=== PATIENT | male | born 1955 | race Two or more races ===

== ENCOUNTER 2020-07-04 22:42 | Inpatient (IN) | payer BC, OTHER ==
[~2020-07-04] VITALS: Ht 177.8 cm; Wt 70.3 kg
--- NOTE | 2020-07-04 22:42 | NUR ---
[place] [facility] [place] O2 SAT 60%, PT TO BED 8, PLACED ON MONITOR, GOWNED, PIV STARTED, BLOOD COLLECTED, RT AND MD AT BEDSIDE
--- NOTE | 2020-07-04 22:45 | NUR ---
PT DAUGHTER ANDRIA LINDSAY .
[2020-07-04] MEDS ORDERED: ACETAMINOPHEN 650 MG/20.3 ML UDC ONE (22:54)
[2020-07-04] MEDS ORDERED: IV NS 0.9% 500 ML BAG IV ONE (23:00)
[2020-07-04] MEDS ORDERED: ACETAMINOPHEN ES 500 MG TABLET GT ONE (23:00)
[2020-07-04 23:01] LABS: BASOPHILS % (AUTO) 0.3 % (0.0-2.0); EOSINOPHILS % (AUTO) 1.3 % (0.0-6.0); HEMATOCRIT 38 % (39-51); HEMOGLOBIN 12.6 g/dL (13.5-17.5); LYMPHOCYTES # (AUTO) 1.1 /CMM (0.8-4.8); LYMPHOCYTES % (AUTO) 7.5 % (20.0-44.0); MEAN CORPUSCULAR HGB CONC 33 g/dl (31.0-36.0); MEAN CORPUSCULAR VOLUME 96 fL (80-96); MONOCYTES # (AUTO) 0.5 /CMM (0.1-1.30); MONOCYTES % (AUTO) 3.6 % (2.0-12.0); NEUTROPHILS # (AUTO) 12.7 /CMM (1.8-8.9); NEUTROPHILS % (AUTO) 87.3 % (43.0-81.0); PLATELET COUNT (AUTO) 222 /CMM (150-450); RED BLOOD CELL COUNT(AUTO) 3.94 MIL/uL (4.5-6.0); WHITE BLOOD COUNT (AUTO) 14.6 K/uL (4.3-11.0)
--- NOTE | 2020-07-04 23:09 | NUR ---
COVID SWAB SENT
[2020-07-04 23:33] LABS: ALANINE AMINOTRANSFERASE 25 U/L (12-78); ALKALINE PHOSPHATASE 122 U/L (46-116); ASPARTATE AMINOTRANSFERASE 16 U/L (15-37); B-TYPE NATRIURETIC PEPTIDE 185 PG/ML (0-125); BILIRUBIN,DIRECT 0.2 mg/dL (0.0-0.2); BILIRUBIN,TOTAL 0.5 mg/dL (0.2-1.0); CALCIUM, SERUM 9.5 mg/dL (8.5-10.1); CARBON DIOXIDE 33 mmol/L (21-32); CHLORIDE 101 mmol/L (98-107); CREATININE 0.7 mg/dL (0.6-1.3); GLUCOSE 140 mg/dL (74-106); POTASSIUM 4.4 mmol/L (3.5-5.1); SODIUM SERUM 139 mmol/L (136-145); TOTAL PROTEIN, SERUM 7.3 g/dL (6.4-8.2); UREA NITROGEN, BLOOD 22 mg/dL (7-18)
[2020-07-05] VITALS (40 sets, daily range): BP systolic 75–136; BP diastolic 42–77
--- NOTE | 2020-07-05 00:19 | NUR ---
ER MD SPOKE TO DR. SOSA REGARDING PT ADMISSION.
[2020-07-05] MEDS ORDERED: VANCOMYCIN 1 GM in IV D5W 250 ML IV ONE (00:30)
[2020-07-05] MEDS ORDERED: PIPERACILLIN /TAZOBACTAM 3.375 G in IV D5W 50 ML IV ONE (00:30)
[2020-07-05] MEDS ORDERED: IV NS 0.9% 1,000 ML IV ONE (01:00)
[2020-07-05] MEDS ORDERED: METO5SOL GT (01:02)
[2020-07-05] MEDS ORDERED: IPRA4AER IH (01:02)
[2020-07-05] MEDS ORDERED: LACT-209 GT (01:02)
[2020-07-05] MEDS ORDERED: CRAN425C6 GT (01:02)
[2020-07-05] MEDS ORDERED: ASCO500C18 GT (01:02)
[2020-07-05] MEDS ORDERED: TRAZ-182 GT (01:02)
[2020-07-05] MEDS ORDERED: ATOR80TA GT (01:02)
[2020-07-05] MEDS ORDERED: PSYL1PAC8 GT (01:02)
[2020-07-05] MEDS ORDERED: ONDA4TAB5 GT (01:02)
[2020-07-05] MEDS ORDERED: GABA250S2 GT (01:02)
[2020-07-05] MEDS ORDERED: QUET25TA GT (01:02)
[2020-07-05] MEDS ORDERED: DOCU-141 GT (01:02)
[2020-07-05] MEDS ORDERED: AMIN30LI2 GT (01:02)
[2020-07-05] MEDS ORDERED: POLY17PO4 GT (01:02)
[2020-07-05] MEDS ORDERED: ASPI-1169 GT (01:02)
[2020-07-05] MEDS ORDERED: CLOP75TA15 GT (01:02)
[2020-07-05] MEDS ORDERED: SENN-261 GT (01:02)
[2020-07-05] MEDS ORDERED: FAMO40TA7 GT (01:02)
[2020-07-05] MEDS ORDERED: PIPERACILLIN /TAZOBACTAM 3.375 G VIAL IV ONE (01:13)
[2020-07-05] MEDS ORDERED: VANCOMYCIN 1 GM VIAL ONE (01:13)
--- NOTE | 2020-07-05 01:24 | NUR ---
BED ASSIGNMENT 258
[2020-07-05 01:45] LABS: ABG BASE EXCESS 6.4 mmol/L; ABG OXYGEN SATURATION 98.6 % (92.0-98.5); ABG PCO2 39.6 mmHg (35.0-45.0); ABG PH 7.498 (7.350-7.450); ABG PO2 153.7 mmHg (75.0-100.0); AaDO2 519.7 mmHg; COHb 0.3 % (0.5-1.5); MetHb 0.4 % (0.0-1.5); O2Hb 97.9 % (94.0-97.0); PEEP,BG 5 cm H2O; SITE, ABG Left Brachial; VENT MODE, BG AC 16/450/100%/+5; VT, ABG 450 mL
--- NOTE | 2020-07-05 02:12 | NUR ---
report given to june lemusinternship nurse for rachell
[2020-07-05] MEDS: IV D5/ 0.9% NACL 1,000 ML IV PRN ×2 (02:46→16:46)
--- NOTE | 2020-07-05 02:52 | NUR ---
pt transported to icu
--- NOTE | 2020-07-05 03:00 | NUR ---
MATRIX DRIER TENDER ADMISSION NOTES, RECEIVED 64 YO MALE ADMITTED FROM ER DEPARTMENT VIA STRETCHER IN COMPANY OF 1NURSES AND 2 RT, UNDER MEDICAL SERVICES OF DR SOSA, WITH DX SEPSIS, PATIENT WITH TRACH PORTEX 7 IN PLACED, ATTACHED TOO MECHANICAL VENTILATOR WITH 70% F1O2 AT THIS TIME, WITH 99% O2 SAT LEVEL, NO SOB/ACUTE DISTRESS NOTED, ATTACH ED CHIEF INTERNAL AUDITOR AND HR IN 80S AT THIS TIME, BP 86/52, GT IN PLACED, SITE INTACT, IV SITED IN RIGHT AC AND RIGHT FA 18G, BOTH PATENT AND INTACT, IV FLUIDS STARTED UPON RECEIVING PATIENT, AND INFUSING WELL, REDNESS NOTED IN SACRUM AND RIGHT HEEL, KEPT PATIENT CLEAN AND DRY, AND REPOSITIONED HIM WITH OFFLOADING HEELS, CONDOM CATH IN PLACED, NO URINE NOTED AT THIS TIME, NO BOWEL MOVEMENT, CALL LIGHT W/ REACH, S/R OF BED X2 UP, ALL NEEDS PROVIDED, WILL CONTINUE TO MONITOR CLOSELY.
[2020-07-05 04:30] LABS: BASOPHILS % (AUTO) 0.1 % (0.0-2.0); EOSINOPHILS % (AUTO) 0.1 % (0.0-6.0); HEMATOCRIT 29 % (39-51); HEMOGLOBIN 9.5 g/dL (13.5-17.5); LYMPHOCYTES # (AUTO) 0.4 /CMM (0.8-4.8); LYMPHOCYTES % (AUTO) 2.8 % (20.0-44.0); MEAN CORPUSCULAR HGB CONC 33 g/dl (31.0-36.0); MEAN CORPUSCULAR VOLUME 98 fL (80-96); MONOCYTES # (AUTO) 0.9 /CMM (0.1-1.30); MONOCYTES % (AUTO) 6.1 % (2.0-12.0); NEUTROPHILS # (AUTO) 13.8 /CMM (1.8-8.9); NEUTROPHILS % (AUTO) 90.9 % (43.0-81.0); PLATELET COUNT (AUTO) 151 /CMM (150-450); RED BLOOD CELL COUNT(AUTO) 2.94 MIL/uL (4.5-6.0); WHITE BLOOD COUNT (AUTO) 15.2 K/uL (4.3-11.0)
[2020-07-05 04:46] LABS: CALCIUM, SERUM 8.5 mg/dL (8.5-10.1); CREATININE 0.7 mg/dL (0.6-1.3)
[2020-07-05] MEDS ORDERED: MIDO2.5T GT (05:55)
[2020-07-05] MEDS ORDERED: ACET325T53 GT (05:58)
--- NOTE | 2020-07-05 06:42 | NUR ---
RN CLOSING NOTES, PATIENT REMAINED STABLE THE REST OF THE SHIFT INITIALLY SBP 80S, WITH SBP UP TO 110S AT THIS TIME, CONT ON MECHANICAL VENTILATOR WITH O2 SAT LEVEL >98%, F102 50%, CONT NSR IN TELE MONITOR WITH HR 70S AT THIS TIME, IVF INFUSING WELL AND PATIENT TOLERATED WELL, NO S/S OF INFILTRATION AT SITE, NO URINE OUTPUT IN THE LAST 3 HOURS THAT PATIENT WAS ADMITTED, CONDOM CATH IN PLACED, PATIENT DRY AND CLEAN AND WELL REPOSITIONED, BED LOCKED AND IN LOWEST POSITION, CALL LIGHT W/I REACH, BED S/R OF BED UP X2, WILL ENDORSED CONTINUITY OF CARE TO ONCOMING NURSE.
--- NOTE | 2020-07-05 07:08 | NUR ---
WOUND CARE CONSULT: REVIEWED CHART, NURSING DOCUMENTATION AND PHOTOS WHICH INDICATE SACRAL AND RT HEEL INTACT DEEP TISSUE INJURIES, PRESENT ON ADMISSION. RECOMMENDATIONS MADE FOR SKIN PROTECTION. DISCUSSED WITH NURSING STAFF. FIRST STEP LOW AIRLOSS MATTRESS IS ON ORDER. MD IN AGREEMENT WITH PLAN OF CARE.
[2020-07-05] MEDS ORDERED: Z GUARD REMEDY 2 OZ OINT TP PRN (07:30)
[2020-07-05] MEDS ORDERED: Medication Not On Formulary EA (Ipratropium/Albuterol Sulfate (Combivent Respimat 20-100 IH SCH (08:30)
[2020-07-05] MEDS ORDERED: ONDANSETRON 4 MG TAB.RAPDIS GT PRN (08:30)
[2020-07-05] MEDS: PSYLLIUM SEED 1 PKT PACKET GT SCH ×2 (08:43→20:22)
[2020-07-05] MEDS: METOCLOPRAMIDE HCL 10 MG/10 ML UDC GT SCH ×3 (08:43→17:38)
[2020-07-05] MEDS: HYDROCORTISONE SOD SUCCINATE 100 MG/2 ML VIAL IV SCH ×3 (08:43→20:22)
[2020-07-05] MEDS: FAMOTIDINE (20 MG) 20 MG TABLET GT SCH (08:44)
[2020-07-05] MEDS: VANCOMYCIN 0.75 GM in IV D5W 250 ML IV SCH ×2 (08:44→17:37)
[2020-07-05] MEDS: CLOPIDOGREL BISULFATE 75 MG TABLET GT SCH (08:44)
[2020-07-05] MEDS: QUETIAPINE FUMARATE 25 MG TABLET GT SCH ×2 (08:44→17:38)
[2020-07-05] MEDS: ASPIRIN 81 MG TAB.CHEW GT SCH (08:44)
[2020-07-05] MEDS: ASCORBIC ACID 500 MG TABLET GT SCH (08:44)
[2020-07-05] MEDS: Z GUARD REMEDY 2 OZ OINT TP SCH (08:45)
[2020-07-05 08:54] LABS: ABG BASE EXCESS 4.1 mmol/L; ABG OXYGEN SATURATION 97.1 % (92.0-98.5); ABG PCO2 49.2 mmHg (35.0-45.0); ABG PH 7.398 (7.350-7.450); ABG PO2 90.8 mmHg (75.0-100.0); AaDO2 210.4 mmHg; COHb 0.5 % (0.5-1.5); MetHb 0.3 % (0.0-1.5); O2Hb 96.3 % (94.0-97.0); PEEP,BG 5 cm H2O; SITE, ABG Left Brachial; VT, ABG 450 mL
[2020-07-05] MEDS: MIDODRINE HCL (5MG) 5 MG TABLET GT SCH ×3 (08:57→17:38)
[2020-07-05] MEDS ORDERED: ALBUTEROL FS 2.5 MG/0.5 ML VIAL.NEB NEB PRN (09:00)
[2020-07-05] MEDS ORDERED: Medication Not On Formulary EA (Cranberry Extract (Cranberry) 425 MG) GT SCH (09:00)
[2020-07-05] MEDS ORDERED: IPRATROPIUM NEB FS 0.5 MG/2.5 ML AMPUL.NEB IH PRN (09:00)
[2020-07-05] MEDS ORDERED: MIDODRINE HCL 2.5 MG TABLET GT SCH (09:00)
[2020-07-05] MEDS: PROSOURCE / PROSTAT (PYXIS) 30 ML UDC GT SCH ×2 (09:00→17:41)
[2020-07-05] MEDS ORDERED: GABAPENTIN 300 MG CAPSULE GT SCH (09:00)
--- NOTE | 2020-07-05 09:37 | NUR ---
PT ASSESSED, PT ALERT OX4, COOPERATIVE. PT ABLE TO MOUTH WORDS APPROPRIATELY. PT HAS CONDOM CATH ON WITH SMALL BAG. PT STATES HE USUALLY USES A URINAL BUT HE WOULD LIKE TO KEEP THE CONDOM CATH ON. ADD A CATH BAG ADDED TO CONDOM CATH AND SMALL BAG REMOVED. URINE SAMPLE SENT TO LAB PER MD ORDERS. PT COMPLAINS OF PAIN IN LEFT SIDE OF FACE AND LEFT EYE. PT'S LEFT EYE IS SLIGHTLY PUFFY AND PINK ON THE EYELID. PT DENIES RUBBING EYE OR SCRATCHING EYE. PT DENIES ANY OTHER PAIN AT THIS TIME. PT'S CURRENT TEMP IS 98.6 ORALLY. PT ABLE TO REPOSITION SELF IN BED WITHOUT DIFFICULTY OBSERVED BY RN. WILL CONTINUE TO MONITOR.
[2020-07-05] MEDS: PIPERACILLIN /TAZOBACTAM 3.375 G in IV D5W 100 ML IV SCH ×2 (09:48→18:49)
--- NOTE | 2020-07-05 10:04 | NUR ---
RN SPOKE TO PT'S DAUGHTER ANDRIA. ACCORDING TO ANDRIA PT RECEIVED BOTH DOSES OF THE COVID 19 VACCINE AT [facility].
[2020-07-05 10:11] LABS: BILIRUBIN,URINE NEGATIVE (NEGATIVE); COLOR,URINE DARK YELLOW (YELLOW); LEUKOCYTE ESTERASE ,URINE NEGATIVE (NEGATIVE); NITRITE, URINE NEGATIVE (NEGATIVE); PH,URINE 5.5 (5.0-8.0); PROTEIN,URINE NEGATIVE (NEGATIVE); UGLUCOSE NEGATIVE (NEGATIVE); UROBILINOGEN,URINE 0.2 EU/dL (0.2)
[2020-07-05] MEDS: GABAPENTIN 300 MG CAPSULE GT SCH (10:38)
[2020-07-05] MEDS: ACETAMINOPHEN 650 MG/20.3 ML UDC GT PRN (10:38)
--- NOTE | 2020-07-05 11:08 | NUR ---
[facility]ACCINE ON 06/08/20, NURSE STATES SHE WILL FAX OVER PROOF OF VACCINE TO US.
[2020-07-05] MEDS: JEVITY 1.2 CAL 1,000 ML BOTTLE GT SCH (12:19)
[2020-07-05 12:21] LABS: MAGNESIUM 1.9 mg/dL (1.8-2.4)
[2020-07-05 12:23] LABS: RBC,URINE NONE SEEN /HPF (0-2)
[2020-07-05 12:24] LABS: BACTERIA,URINE None seen /HPF (None Seen); SQUAMOUS EPITHELIAL CELL,UR Few /HPF (None Seen)
[2020-07-05 13:02] LABS: THYROID STIMULATING HORMONE 0.903 uIU/mL (0.358-3.74)
[2020-07-05] MEDS ORDERED: NEUTRA PHOS 1 POWD.PACKET GT ONE (14:00)
--- NOTE | 2020-07-05 18:52 | NUR ---
END OF SHIFT NOTE: PT ALERT OX4. CONDOM CATHETER CAME OFF, PT IS ABLE TO USE URINAL. 1ST STEP OVERLAY MATTRESS PUT ON BED PER MD ORDERS. TUBE FEEDING STARTED PER MD ORDERS. PT CHECKED ON HOURLY AND PRN BY NURSING STAFF.
--- NOTE | 2020-07-05 19:15 | NUR ---
RECEIVED PT ON BED AWAKE PT ALERT OX4, COOPERATIVE. PT ABLE TO MOUTH WORDS APPROPRIATELY. TELE MONITOR READS SINUS RHYTHM 80'S HAVE GTUBE ON PLACE PATENT, PLACEMENT WAS CHECKED AND VERIFIED RESIDUAL 5ML WITH ONGOING JEVITY @ 75ML/HR TOLERATING WELL HAVE RAC #18 AND RHAND #20 IV CLEAN DRY AND INTACT FLUSHED WELL WITH ONGOING NS @ 100ML/HR INFUSING WELL, BED ON LWOEST POSITION AND LCOKED SIDE RAILS UP X 2 CALL LIGHT WITHIN REACH WILL CONTINUE TO MONITOR.
[2020-07-05] MEDS: ENOXAPARIN SODIUM 40 MG/0.4 ML DISP.SYRIN SQ SCH (20:25)
[2020-07-05] MEDS: POLYETHYLENE GLYCOL 3350 17 GM POWD.PACK GT SCH (21:13)
[2020-07-05] MEDS: DOCUSATE SODIUM LIQ 100 MG/10 ML UDC GT SCH (21:13)
[2020-07-05] MEDS: SENNOSIDES 8.6 MG TABLET GT SCH (21:13)
[2020-07-05] MEDS: ATORVASTATIN 40 MG TABLET GT SCH (21:13)
[2020-07-05] MEDS: TRAZODONE 50 MG TABLET GT SCH (21:13)
[2020-07-06] VITALS (29 sets, daily range): BP systolic 93–144; BP diastolic 52–81
[2020-07-06] MEDS: VANCOMYCIN 0.75 GM in IV D5W 250 ML IV SCH ×3 (00:10→16:52)
[2020-07-06] MEDS: ACETAMINOPHEN 650 MG/20.3 ML UDC GT PRN ×2 (00:15→08:42)
[2020-07-06] MEDS: PIPERACILLIN /TAZOBACTAM 3.375 G in IV D5W 100 ML IV SCH ×3 (01:08→17:59)
[2020-07-06] MEDS: IV D5/ 0.9% NACL 1,000 ML IV PRN ×2 (02:56→14:18)
[2020-07-06 04:53] LABS: BASOPHILS % (AUTO) 0.1 % (0.0-2.0); HEMATOCRIT 28 % (39-51); HEMOGLOBIN 9.2 g/dL (13.5-17.5); LYMPHOCYTES # (AUTO) 0.7 /CMM (0.8-4.8); LYMPHOCYTES % (AUTO) 6.7 % (20.0-44.0); MEAN CORPUSCULAR HGB CONC 33 g/dl (31.0-36.0); MEAN CORPUSCULAR VOLUME 96 fL (80-96); MONOCYTES # (AUTO) 0.3 /CMM (0.1-1.30); MONOCYTES % (AUTO) 3.2 % (2.0-12.0); PLATELET COUNT (AUTO) 149 /CMM (150-450); RED BLOOD CELL COUNT(AUTO) 2.88 MIL/uL (4.5-6.0)
[2020-07-06] MEDS: HYDROCORTISONE SOD SUCCINATE 100 MG/2 ML VIAL IV SCH (05:02)
[2020-07-06 05:20] LABS: ALANINE AMINOTRANSFERASE 22 U/L (12-78); ALBUMIN 2.2 g/dL (3.4-5.0); ALKALINE PHOSPHATASE 95 U/L (46-116); ASPARTATE AMINOTRANSFERASE 14 U/L (15-37); BILIRUBIN,TOTAL 0.3 mg/dL (0.2-1.0); CALCIUM, SERUM 8.6 mg/dL (8.5-10.1); CARBON DIOXIDE 31 mmol/L (21-32); CHLORIDE 104 mmol/L (98-107); CREATININE 0.5 mg/dL (0.6-1.3); GLUCOSE 163 mg/dL (74-106); MAGNESIUM 2.1 mg/dL (1.8-2.4); PHOSPHORUS 1.9 mg/dL (2.5-4.9); POTASSIUM 3.9 mmol/L (3.5-5.1); SODIUM SERUM 139 mmol/L (136-145); TOTAL PROTEIN, SERUM 5.7 g/dL (6.4-8.2); UREA NITROGEN, BLOOD 16 mg/dL (7-18)
--- NOTE | 2020-07-06 06:46 | NUR ---
PT ON BED AWAKE A/O X3 CAN MOUTH NEEDS STILL ON TRACH/VENT SETTING PER MD FIO2 50% SPO2 93% NO SIGN AND SYMPTOMS OF RESPIRATORY DISTRESS NO PAIN COMPLAINT, BEDSIDE MONITOR READS SINUS RHYTHM 80S NO SIGNIFICANT CHANGES ON CONDITION NOTED ALL NEEDS ATTENDED BED ON LOWEST POSITION AND LOCKED SIDE RAILS UP X2 CALL LIGHT WITHIN REACH WILL ENDORSED TO AM SHIFT NURSE,
--- NOTE | 2020-07-06 07:49 | NUR ---
PATIENT RECEIVED IN BED AWAKE AND ALERT ORIENTED X 3. ABLE TO MOUTH WORDS AND NOD HEAD. PATIENT ON PRESCRIBED VENT TRACH PORTEX 7, AC 16, FIO2 50%, TV 480, PEEP 5. PATIENT ON MONITOR SHOWING SR 70-80s. PATIENT HAS PEG TUBE IN PLACE. FEEDING PAUSED FOR 0800, WILL INITIATE AT 1200 ORDERED. PATIENT HAS RAC 18 AND RFA 18 INTACT, NO SIGNS OF INFECTION OR INFILTRATION. . ALL SAFETY MEASURES IN PLACE. WILL CONTINUE TO MONITOR
[2020-07-06] MEDS: ASCORBIC ACID 500 MG TABLET GT SCH (08:23)
[2020-07-06] MEDS: QUETIAPINE FUMARATE 25 MG TABLET GT SCH ×2 (08:23→16:50)
[2020-07-06] MEDS: CLOPIDOGREL BISULFATE 75 MG TABLET GT SCH (08:23)
[2020-07-06] MEDS: GABAPENTIN 300 MG CAPSULE GT SCH (08:23)
[2020-07-06] MEDS: ASPIRIN 81 MG TAB.CHEW GT SCH (08:23)
[2020-07-06] MEDS: PROSOURCE / PROSTAT (PYXIS) 30 ML UDC GT SCH ×2 (08:24→16:51)
[2020-07-06] MEDS: MIDODRINE HCL (5MG) 5 MG TABLET GT SCH ×3 (08:24→16:51)
[2020-07-06] MEDS: FAMOTIDINE (20 MG) 20 MG TABLET GT SCH (08:24)
[2020-07-06] MEDS: METOCLOPRAMIDE HCL 10 MG/10 ML UDC GT SCH ×3 (08:25→16:51)
[2020-07-06] MEDS: PSYLLIUM SEED 1 PKT PACKET GT SCH ×2 (08:25→21:08)
[2020-07-06] MEDS: Z GUARD REMEDY 2 OZ OINT TP SCH (08:39)
[2020-07-06] MEDS: NEUTRA PHOS 1 POWD.PACKET PO SCH ×2 (09:17→16:50)
--- NOTE | 2020-07-06 11:17 | NUR ---
PCR NEGATIVE TEST RESULT RELAYED TO MD SOSA, PENDING BED PLACEMENT FOR TRANSFER TO [facility]
[2020-07-06] MEDS: JEVITY 1.2 CAL 1,000 ML BOTTLE GT SCH (12:00)
[2020-07-06] MEDS: SOD FERRIC GLUC 125 MG in IV NS 0.9% 100 ML IV SCH (14:18)
--- NOTE | 2020-07-06 16:00 | NUR ---
PATIENT TRANSPORTED WITH RT TO [facility] ROOM 109
--- NOTE | 2020-07-06 19:30 | NUR ---
RN OPENING NOTES: RECEIVED PT A/OX4 IN BED RESTING COMFORTABLY. PATIENT IN NO S/SX OF ACUTE DISTRESS AT THIS TIME. NO SOB NOTED. PATIENT'S BREATHING IS EVEN AND UNLABORED. PATIENT ON MECHANICAL VENT; SETTINGS PRESCRIBED; PT TOLERATED WELL. AMBU BAG AT BED SIDE ALARMS SET PER PROTOCOL AND AUDIBLE. VENT PLUGGED IN TO RED OUTLET. NO DISTRESS NOTED. PATIENT ON TELE MONITORING READING SINUS RHYTHM HR IS @70s AT THE TIME OF RECEIVED. G TUBE FLUSHING AND PATENT; SITE CLEAN DRY AND INTACT; NO RESIDUAL NOTED; CONNECTED TO TUBE FEEDING OF JEVITY 1.2 @75ML/HR; PT TOLERATES WELL. NOTED IV SITE ON R FA #18;PATENT, INTACT AND FLUSHING WELL; NO S/S OF INFECTION OR INFILTRATION. WITH IV FLUID RUNNING ORDERED. WITH URINAL @ BEDSIDE. PATIENT WITH VT PUMP ON. SAFETY MEASURES HAVE BEEN PROVIDED AND IMPLEMENTED. PATIENT BED ALARM IS ON. HEAD OF BED ELEVATED. BED IS LOCKED, IN LOWEST POSITION AND SIDE RAILS UP. CALL LIGHT WITHIN REACH OF THE PATIENT. APPLICABLE ISOLATION PRECAUTIONS IN PLACE. WILL CONTINUE TO MONITOR AND REASSESS FOR ANY CHANGES AND WILL CARRY OUT ANY ONGOING AND ACTIVE MD ORDER.
--- NOTE | 2020-07-06 20:03 | NUR ---
PATIENT REMAINS IN BED NO ACUTE CHANGE OF CONDITION, PATIENT TO BE ON SIMV TRIAL TOMORROW. WOUND TX COMPLETED THIS SHIFT DIRECTED. ALL SAFETY MEASURES IN PLACE. REPORT GIVEN TO ONCOMING RN FOR ARACELI
[2020-07-06] MEDS: POLYETHYLENE GLYCOL 3350 17 GM POWD.PACK GT SCH (21:09)
[2020-07-06] MEDS: ATORVASTATIN 40 MG TABLET GT SCH (21:09)
[2020-07-06] MEDS: TRAZODONE 50 MG TABLET GT SCH (21:09)
[2020-07-06] MEDS: SENNOSIDES 8.6 MG TABLET GT SCH (21:09)
[2020-07-06] MEDS: ENOXAPARIN SODIUM 40 MG/0.4 ML DISP.SYRIN SQ SCH (21:10)
[2020-07-06] MEDS: DOCUSATE SODIUM LIQ 100 MG/10 ML UDC GT SCH (21:10)
--- NOTE | 2020-07-06 23:00 | NUR ---
RN NOTES NO CHANGE IN PATIENT CONDITION AT THIS TIME PATIENT VITALS STABLE, NO SIGNS OF ACUTE RESPIRATORY DISTRESS. SEAFOOD AND SERVICE MEAT MANAGER MADE AWARE. WILL CONTINUE TO MONITOR AND REASSESS FOR ANY CHANGES THROUGHOUT THE SHIFT.
[2020-07-07] VITALS: BP 95/57
[2020-07-07] MEDS: IV D5/ 0.9% NACL 1,000 ML IV PRN
[2020-07-07] MEDS: VANCOMYCIN 0.75 GM in IV D5W 250 ML IV SCH ×3 (00:08→17:22)
[2020-07-07] MEDS: PIPERACILLIN /TAZOBACTAM 3.375 G in IV D5W 100 ML IV SCH ×3 (00:08→17:21)
--- NOTE | 2020-07-07 03:00 | NUR ---
RN NOTES PATIENT REMAINS IN NO ACUTE RESPIRATORY DISTRESS AT THIS TIME, NO CHANGES TO CONDITION/STATUS. SHAPE BRICK MOLDER WELL AWARE. WILL CONTINUE TO MONITOR AND REASSESS FOR ANY CHANGES THROUGHOUT THE SHIFT
[2020-07-07 04:00] VITALS: BP 98/54
[2020-07-07 06:57] LABS: BASOPHILS % (AUTO) 0.3 % (0.0-2.0); EOSINOPHILS % (AUTO) 0.4 % (0.0-6.0); HEMATOCRIT 26 % (39-51); HEMOGLOBIN 8.9 g/dL (13.5-17.5); LYMPHOCYTES # (AUTO) 1.4 /CMM (0.8-4.8); LYMPHOCYTES % (AUTO) 19.4 % (20.0-44.0); MEAN CORPUSCULAR HGB CONC 34 g/dl (31.0-36.0); MEAN CORPUSCULAR VOLUME 97 fL (80-96); MONOCYTES # (AUTO) 0.4 /CMM (0.1-1.30); MONOCYTES % (AUTO) 6.3 % (2.0-12.0); NEUTROPHILS # (AUTO) 5.2 /CMM (1.8-8.9); NEUTROPHILS % (AUTO) 73.6 % (43.0-81.0); PLATELET COUNT (AUTO) 148 /CMM (150-450); RED BLOOD CELL COUNT(AUTO) 2.72 MIL/uL (4.5-6.0); WHITE BLOOD COUNT (AUTO) 7.1 K/uL (4.3-11.0)
[2020-07-07 07:15] LABS: CALCIUM, SERUM 8.2 mg/dL (8.5-10.1); CREATININE 0.5 mg/dL (0.6-1.3); MAGNESIUM 1.8 mg/dL (1.8-2.4); PHOSPHORUS 2.4 mg/dL (2.5-4.9)
--- NOTE | 2020-07-07 07:30 | NUR ---
[facility] RN AM NOTES: RECEIVED PT A/OX4 IN BED RESTING COMFORTABLY. WITH PORTEX 7 TO MECHANICAL VENT, SETTING ORDERED, WELL TOLERATED O2 SAT AT 98%. BREATHING EVEN AND UNLABORED. NO SOB NOTED. AMBU BAG AT BED SIDE ALARMS SET PER PROTOCOL AND AUDIBLE. VENT PLUGGED IN TO RED OUTLET. SINUS RHYTHM ON MONITOR HR 6, DENIES PAIN OR ANY DISCOMFORT. IVF D5NS AT 100 ML/HR INFUSING WELL TO RFA G 18, SITE CLEAR. GT CHECKED FOR PLACEMENT, 0 RESIDUAL, FLUSHED THEN CONNECTED TO TUBE FEEDING OF JEVITY 1.2 @75ML/HR; ON AT 1200 OFF AT 0800. PT TOLERATES WELL. WITH URINAL @ BEDSIDE. PATIENT WITH DVT PUMP ON. SEE NURSING ASSESSMENT FOR SKIN ISSUES. SAFETY MEASURES IN PLACE. INDEPENDENT OF BED MOBILITY. PATIENT BED ALARM IS ON. HEAD OF BED ELEVATED. BED IS LOCKED, IN LOWEST POSITION AND SIDE RAILS UP. CALL LIGHT WITHIN REACH OF THE PATIENT. APPLICABLE ISOLATION PRECAUTIONS IN PLACE. WILL CONTINUE TO MONITOR AND REASSESS FOR ANY CHANGES AND WILL CARRY OUT ANY ONGOING AND ACTIVE MD ORDER.
[2020-07-07 08:00] VITALS: BP 100/65
[2020-07-07] MEDS: METOCLOPRAMIDE HCL 10 MG/10 ML UDC GT SCH ×3 (08:19→17:21)
[2020-07-07] MEDS: PSYLLIUM SEED 1 PKT PACKET GT SCH ×2 (08:20→20:58)
[2020-07-07] MEDS: ASCORBIC ACID 500 MG TABLET GT SCH (08:20)
[2020-07-07] MEDS: CLOPIDOGREL BISULFATE 75 MG TABLET GT SCH (08:20)
[2020-07-07] MEDS: QUETIAPINE FUMARATE 25 MG TABLET GT SCH ×2 (08:21→17:20)
[2020-07-07] MEDS: MIDODRINE HCL (5MG) 5 MG TABLET GT SCH ×3 (08:21→17:20)
[2020-07-07] MEDS: GABAPENTIN 300 MG CAPSULE GT SCH (08:21)
[2020-07-07] MEDS: ASPIRIN 81 MG TAB.CHEW GT SCH (08:21)
[2020-07-07] MEDS: FAMOTIDINE (20 MG) 20 MG TABLET GT SCH (08:22)
[2020-07-07] MEDS: PROSOURCE / PROSTAT (PYXIS) 30 ML UDC GT SCH ×2 (08:27→17:21)
[2020-07-07] MEDS: Z GUARD REMEDY 2 OZ OINT TP SCH (08:28)
[2020-07-07] MEDS ORDERED: POTASSIUM PHOSPHATE MM 15 MMOL in IV NS 0.9% 250 ML IV SCH (09:30)
--- NOTE | 2020-07-07 09:30 | NUR ---
RN NOTES DUE MEDS GIVEN
--- NOTE | 2020-07-07 09:53 | NUR ---
WEB MARKETING INTERN NOTES TRANSFER TO TELEMETRY STATUS
[2020-07-07 10:12] LABS: ABG BASE EXCESS 3.6 mmol/L; ABG PCO2 43.4 mmHg (35.0-45.0); ABG PH 7.432 (7.350-7.450); ABG PO2 117.3 mmHg (75.0-100.0); AaDO2 190.4 mmHg; COHb 0.3 % (0.5-1.5); MetHb 0.4 % (0.0-1.5); O2Hb 97.3 % (94.0-97.0); SITE, ABG Right Radial; VENT MODE, BG SIMV 4 PS 15 50% +5
[2020-07-07] MEDS: POTASSIUM PHOSPHATE MM 7.5 MMOL in IV NS 0.9% 100 ML IV SCH ×2 (10:46→12:44)
[2020-07-07] MEDS: POTASSIUM CHLORIDE 20 MEQ POWDER PACKET GT SCH ×2 (11:36→12:26)
[2020-07-07 12:00] VITALS: BP 112/71
[2020-07-07] MEDS: JEVITY 1.2 CAL 1,000 ML BOTTLE GT SCH (12:48)
[2020-07-07] MEDS: SOD FERRIC GLUC 125 MG in IV NS 0.9% 100 ML IV SCH (15:51)
[2020-07-07 16:00] VITALS: BP 100/70
[2020-07-07] MEDS: Potassium Chloride 40 MEQ in IV D5/ 0.9% NACL 1,000 ML IV PRN (17:21)
--- NOTE | 2020-07-07 18:56 | NUR ---
DUMPER BAILER OPERATOR CLOSING NOTES: PT IN BED, RESTING, A/OX4, WITH PORTEX 7 TO MECHANICAL VENT, SETTING ORDERED, WELL TOLERATED O2 SAT AT 98%. BREATHING EVEN AND UNLABORED. NO SOB NOTED. AMBU BAG AT BED SIDE ALARMS SET PER PROTOCOL AND AUDIBLE. VENT PLUGGED IN TO RED OUTLET. SINUS RHYTHM ON MONITOR HR 86, DENIES PAIN OR ANY DISCOMFORT. IVF D5NS AT 100 ML/HR INFUSING WELL TO RFA G 18, SITE CLEAR. WITH [place]D MIDLINE G 18, FLUSHES WELL SITE CLEAR.GT CHECKED FOR PLACEMENT, 0 RESIDUAL, FLUSHED THEN CONNECTED TO TUBE FEEDING OF JEVITY 1.2 @75ML/HR; ON AT 1200 OFF AT 0800. PT TOLERATES WELL. WITH URINAL @ BEDSIDE. PATIENT WITH DVT PUMP ON. SAFETY MEASURES IN PLACE. INDEPENDENT OF BED MOBILITY. PATIENT BED ALARM IS ON. HEAD OF BED ELEVATED. BED IS LOCKED, IN LOWEST POSITION AND SIDE RAILS UP. CALL LIGHT WITHIN REACH OF THE PATIENT. APPLICABLE ISOLATION PRECAUTIONS IN PLACE. ALL NEEDS MET, PERFORMED PRESCRIBED WOUND TREATMENT WITH PM CARE. S/P RT BUTTOCK WOUND DEBRIDEMENT BY YI ENRIQUEZ. WILL ENDORSE TO NEXT SHIFT FOR ARACELI. Addendum: 07/07/20 at 1905 by GLENNY DAVILA RN CORRECTION: DISREGARD DOCUMENTED S/P RT BUTTOCK WOUND DEBRIDEMENT, INTENDED FOR ANOTHER PATIENT Addendum: 07/07/20 at 1909 by GLENNY DAVILA RN CORRECTION: IVF D5NS + 40 MEQ KCL INFUSING AT 70 ML/HR Addendum: 07/07/20 at 192 by GLENNY DAVILA RN CORRECTION: PATIENT WITH RFA G 18 ONLY. DISREGARD EDMOND MIDLINE DOCUMENTATION INTENDED FOR ANOTHER PATIENT.
--- NOTE | 2020-07-07 19:30 | NUR ---
RN OPENING NOTES: RECEIVED TRACH PT A/OX4 IN BED RESTING COMFORTABLY. PATIENT IN NO S/SX OF ACUTE DISTRESS AT THIS TIME. NO SOB NOTED. PATIENT'S BREATHING IS EVEN AND UNLABORED. PATIENT ON MECHANICAL VENT; SETTINGS PRESCRIBED; PT TOLERATED WELL. AMBU BAG AT BED SIDE ALARMS SET PER PROTOCOL AND AUDIBLE. VENT PLUGGED IN TO RED OUTLET. NO DISTRESS NOTED. PATIENT ON TELE MONITORING READING SINUS RHYTHM HR IS @76 AT THE TIME OF RECEIVED. G TUBE FLUSHING AND PATENT; SITE CLEAN DRY AND INTACT; 20CC OF RESIDUAL TAKEN; CONNECTED TO TUBE FEEDING OF JEVITY 1.2 @75ML/HR; PT TOLERATES WELL. NOTED IV SITE ON R FA #18 AND R UA MIDLINE # 18;BOTH PATENT, INTACT AND FLUSHING WELL; NO S/S OF INFECTION OR INFILTRATION. WITH IV FLUID RUNNING ORDERED. WITH URINAL @ BEDSIDE. PATIENT WITH VT PUMP ON. SAFETY MEASURES HAVE BEEN PROVIDED AND IMPLEMENTED. PATIENT BED ALARM IS ON. HEAD OF BED ELEVATED. BED IS LOCKED, IN LOWEST POSITION AND SIDE RAILS UP. CALL LIGHT WITHIN REACH OF THE PATIENT. APPLICABLE ISOLATION PRECAUTIONS IN PLACE. WILL CONTINUE TO MONITOR AND REASSESS FOR ANY CHANGES AND WILL CARRY OUT ANY ONGOING AND ACTIVE MD ORDER. Addendum: 07/08/20 at 0657 by LO LEE RN CORRECTION: PT HAS NO R UA MIDLINE; ONLY R FA.
[2020-07-07 20:00] VITALS: BP 126/74
--- NOTE | 2020-07-07 20:00 | NUR ---
RN NOTES REGULAR SUCTIONING MEASURES PROVIDED, WILL BE DONE Q2H AND NEEDED TO FACILITATE SECRETION REMOVAL AND TO FACILITATE GOOD AIRWAY CLEARANCE AND VENTILATION. SAWMILL PRODUCTION WORKER MADE AWARE. WILL CONTINUE TO MONITOR AND ASSESS THROUGHOUT THE SHIFT.
[2020-07-07] MEDS: ENOXAPARIN SODIUM 40 MG/0.4 ML DISP.SYRIN SQ SCH (20:59)
[2020-07-07] MEDS: ATORVASTATIN 40 MG TABLET GT SCH (21:00)
[2020-07-07] MEDS: POLYETHYLENE GLYCOL 3350 17 GM POWD.PACK GT SCH (21:00)
[2020-07-07] MEDS: SENNOSIDES 8.6 MG TABLET GT SCH (21:00)
[2020-07-07] MEDS: DOCUSATE SODIUM LIQ 100 MG/10 ML UDC GT SCH (21:00)
[2020-07-07] MEDS: TRAZODONE 50 MG TABLET GT SCH (21:00)
--- NOTE | 2020-07-07 23:00 | NUR ---
RN NOTES PATIENT REMAINS IN NO ACUTE RESPIRATORY DISTRESS AT THIS TIME, NO CHANGES TO CONDITION/STATUS. CIRCLE BEVELER WELL AWARE. WILL CONTINUE TO MONITOR AND REASSESS FOR ANY CHANGES THROUGHOUT THE SHIFT
[2020-07-08] VITALS: BP 107/64
--- NOTE | 2020-07-08 | NUR ---
RN NOTES REGULAR SUCTIONING MEASURES PROVIDED, WILL BE DONE Q2H AND NEEDED TO FACILITATE SECRETION REMOVAL AND TO FACILITATE GOOD AIRWAY CLEARANCE AND VENTILATION. SUPERIOR COURT CLERK MADE AWARE. WILL CONTINUE TO MONITOR AND ASSESS THROUGHOUT THE SHIFT.
[2020-07-08] MEDS: PIPERACILLIN /TAZOBACTAM 3.375 G in IV D5W 100 ML IV SCH ×2 (00:01→10:59)
[2020-07-08] MEDS: VANCOMYCIN 0.75 GM in IV D5W 250 ML IV SCH ×3 (00:02→17:42)
--- NOTE | 2020-07-08 03:00 | NUR ---
RN NOTES NO CHANGE IN PATIENT CONDITION AT THIS TIME PATIENT VITALS STABLE, NO SIGNS OF ACUTE RESPIRATORY DISTRESS. MANAGER COMPANY MADE AWARE. WILL CONTINUE TO MONITOR AND REASSESS FOR ANY CHANGES THROUGHOUT THE SHIFT.
[2020-07-08 04:00] VITALS: BP 100/66
--- NOTE | 2020-07-08 04:00 | NUR ---
RN NOTES REGULAR SUCTIONING MEASURES PROVIDED, WILL BE DONE Q2H AND NEEDED TO FACILITATE SECRETION REMOVAL AND TO FACILITATE GOOD AIRWAY CLEARANCE AND VENTILATION. TARE MAN MADE AWARE. WILL CONTINUE TO MONITOR AND ASSESS THROUGHOUT THE SHIFT.
[2020-07-08] MEDS: JEVITY 1.2 CAL 1,000 ML BOTTLE GT SCH (04:43)
--- NOTE | 2020-07-08 06:00 | NUR ---
RN NOTES REGULAR SUCTIONING MEASURES PROVIDED, WILL BE DONE Q2H AND NEEDED TO FACILITATE SECRETION REMOVAL AND TO FACILITATE GOOD AIRWAY CLEARANCE AND VENTILATION. DISTRICT SALES COORDINATOR MADE AWARE. WILL CONTINUE TO MONITOR AND ASSESS THROUGHOUT THE SHIFT.
[2020-07-08 06:21] LABS: BASOPHILS % (AUTO) 0.6 % (0.0-2.0); EOSINOPHILS % (AUTO) 2.7 % (0.0-6.0); HEMATOCRIT 28 % (39-51); HEMOGLOBIN 9.5 g/dL (13.5-17.5); LYMPHOCYTES # (AUTO) 1.3 /CMM (0.8-4.8); LYMPHOCYTES % (AUTO) 21.9 % (20.0-44.0); MEAN CORPUSCULAR HGB CONC 34 g/dl (31.0-36.0); MEAN CORPUSCULAR VOLUME 96 fL (80-96); MONOCYTES # (AUTO) 0.5 /CMM (0.1-1.30); MONOCYTES % (AUTO) 7.9 % (2.0-12.0); NEUTROPHILS # (AUTO) 4.1 /CMM (1.8-8.9); NEUTROPHILS % (AUTO) 66.9 % (43.0-81.0); PLATELET COUNT (AUTO) 157 /CMM (150-450); WHITE BLOOD COUNT (AUTO) 6.1 K/uL (4.3-11.0)
--- NOTE | 2020-07-08 07:00 | NUR ---
RN CLOSING NOTE: PATIENT REMAINS IN ROOM IN NO SIGNS OF RESPIRATORY DISTRESS; STILL ON VENT SETTING PER ORDERED. SAFETY MEASURES IMPLEMENTED, BED IN LOWEST POSITION, LOCKED, SIDE RAILS UP, CALL LIGHT WITHIN REACH. ALL NEEDS AND ORDERS ADDRESSED DURING THE SHIFT. IV ACCESS MAINTAINED INTACT, SECURED AND FLUSHING WELL. ALL DUE MEDS GIVEN ORDERED & SCHEDULED ; PATIENT TOLERATED WELL. PATIENT KEPT CLEAN AND COMFORTABLE WITHIN THE SHIFT. PATIENT ENDORSED TO INCOMING SHIFT RN WITH STABLE VITAL SIGN AND FOR CONTINUITY OF CARE.
[2020-07-08 07:12] LABS: CREATININE 0.5 mg/dL (0.6-1.3); POTASSIUM 3.6 mmol/L (3.5-5.1)
[2020-07-08 07:19] LABS: MAGNESIUM 1.8 mg/dL (1.8-2.4); PHOSPHORUS 3.2 mg/dL (2.5-4.9)
--- NOTE | 2020-07-08 07:20 | NUR ---
RN NOTE RFA #18 IS NO LONGER INTACT. LAC #20 HAS BEEN INSERTED FOR FURTHER USE.
--- NOTE | 2020-07-08 07:30 | NUR ---
RN OPENING NOTE PATIENT IS CURRENTLY IN BED WITH HOB AT SEMI FOWLERS POSITION. PATIENT'S TRACH/VENT ARE IN PLACE WITH NO SIGNS OF LABORED BREATHING. PATIENT IS AOX4. SACRAL STAGE 4 AND BILATERAL FEET WOUNDS ARE NOTED. GTUBE IS IN PLACE WITH APPROPRIATE FEEDING. LAC #[address], PATENT, AND HAS NO SIGNS OF INFILTRATION. BED IS LOCKED IN THE LOWEST POSITION, 3 GUARD RAILS RAISED, AND ALL HOSPITAL SAFETY PRECAUTIONS ARE BEING FOLLOWED. WILL CONTINUE TO MONITOR THROUGHOUT SHIFT.
[2020-07-08 08:00] VITALS: BP 140/66
[2020-07-08] MEDS: MIDODRINE HCL (5MG) 5 MG TABLET GT SCH ×3 (09:00→17:42)
--- NOTE | 2020-07-08 09:30 | NUR ---
RN NOTE NOTIFIED PHARMACY OF IV COMPATIBILITY CONFLICT BETWEEN VANCOMYCIN AND ZOSYN. ADVISED TO ADMINISTER VANCO FIRST FOLLOWED BY ZOSYN. WILL CARRY ON.
[2020-07-08] MEDS: ASPIRIN 81 MG TAB.CHEW GT SCH (09:33)
[2020-07-08] MEDS: CLOPIDOGREL BISULFATE 75 MG TABLET GT SCH (09:34)
[2020-07-08] MEDS: GABAPENTIN 300 MG CAPSULE GT SCH (09:34)
[2020-07-08] MEDS: METOCLOPRAMIDE HCL 10 MG/10 ML UDC GT SCH ×3 (09:35→17:39)
[2020-07-08] MEDS: QUETIAPINE FUMARATE 25 MG TABLET GT SCH ×2 (09:35→17:39)
[2020-07-08] MEDS: ASCORBIC ACID 500 MG TABLET GT SCH (09:35)
[2020-07-08] MEDS: PSYLLIUM SEED 1 PKT PACKET GT SCH (09:36)
[2020-07-08] MEDS: FAMOTIDINE (20 MG) 20 MG TABLET GT SCH (09:44)
[2020-07-08] MEDS: PROSOURCE / PROSTAT (PYXIS) 30 ML UDC GT SCH ×2 (09:50→17:41)
[2020-07-08] MEDS: Z GUARD REMEDY 2 OZ OINT TP SCH (09:50)
[2020-07-08 10:04] LABS: ABG BASE EXCESS 4.7 mmol/L; ABG OXYGEN SATURATION 94.9 % (92.0-98.5); ABG PCO2 38.1 mmHg (35.0-45.0); ABG PH 7.489 (7.350-7.450); ABG PO2 73.3 mmHg (75.0-100.0); AaDO2 168.1 mmHg; COHb 0.3 % (0.5-1.5); MetHb 0.2 % (0.0-1.5); O2Hb 94.4 % (94.0-97.0); SITE, ABG Right Radial; VENT MODE, BG C/A 40%
[2020-07-08 12:00] VITALS: BP 116/63
[2020-07-08] MEDS: Potassium Chloride 40 MEQ in IV D5/ 0.9% NACL 1,000 ML IV PRN (13:26)
[2020-07-08] MEDS: SOD FERRIC GLUC 125 MG in IV NS 0.9% 100 ML IV SCH (14:24)
[2020-07-08 16:00] VITALS: BP 113/64
--- NOTE | 2020-07-08 16:45 | NUR ---
RN NOTE REPORT GIVEN TO RONALD POSADA AT [facility] FOR ARACELI POST DISCHARGE.
[2020-07-08 17:42] VITALS: BP 116/63
--- NOTE | 2020-07-08 19:32 | NUR ---
LEAD INSTRUCTOR/FLIGHT ATTENDANT NOTE PATIENT DISCHARGED TO [facility]. PATIENT IS STABLE AT TIME OF EMT TRANSFER. HANDOFF GIVEN TO JOURNEYMAN MEAT CUTTER AND RT FOR ARACELI.
== END 2020-07-08 19:05 | disposition short-term general hospital (02) | DRG 208 ==
LOC: ER 22:44 → ICU 07-05 01:26 → TELE-TD 07-06 15:20 → TELE1 07-07 09:56 → MEDSG1 07-08 17:48
PROVIDERS: ADMIT Internal Medicine Nephrology; ATTEND Internal Medicine Nephrology
PROC: 5A1945Z Respiratory Ventilation, 24-96 Consecutive Hours (ICD-10-PCS; principal; 2020-07-05)
DX: J95.851 Ventilator associated pneumonia (principal); A41.9 Sepsis, unspecified organism; N18.6 End stage renal disease; R65.21 Severe sepsis with septic shock; J96.21 Acute and chronic respiratory failure with hypoxia; I12.0 Hypertensive chronic kidney disease with stage 5 chronic kidney disease or end stage renal disease; R64 Cachexia; E87.2 Acidosis; F20.9 Schizophrenia, unspecified; J44.9 Chronic obstructive pulmonary disease, unspecified; Z87.19 Personal history of other diseases of the digestive system; Z93.0 Tracheostomy status; Z86.73 Personal history of transient ischemic attack (TIA), and cerebral infarction without residual deficits; Y84.8 Other medical procedures as the cause of abnormal reaction of the patient, or of later complication, without mention of misadventure at the time of the procedure; Y92.129 Unspecified place in nursing home as the place of occurrence of the external cause; Z20.822 Contact with and (suspected) exposure to COVID-19; R13.10 Dysphagia, unspecified; F41.9 Anxiety disorder, unspecified; F32.9 Major depressive disorder, single episode, unspecified; Z79.02 Long term (current) use of antithrombotics/antiplatelets; Z79.51 Long term (current) use of inhaled steroids; Z79.82 Long term (current) use of aspirin; Z79.899 Other long term (current) drug therapy; D64.9 Anemia, unspecified; Z82.49 Family history of ischemic heart disease and other diseases of the circulatory system; Z83.3 Family history of diabetes mellitus
CPT/HCPCS: 31720; 36415; 36600; 71045-TC; 80048-TC; 80053-TC; 80061-TC; 80076-TC; 80202-TC; 81001; 82533; 82728-TC; 82803-TC; 83540-TC; 83605-TC; 83735-TC; 83880; 84100-TC; 84439-TC; 84443-TC; 84484-TC; 85025-TC; 85730-TC; 87040-TC; 87081-TC; 87086-TC; 93307-TC; 93970-TC; 94002-TC; 94003-TC; 94640-TC; 94664-TC; 94760-TC; 94762-TC; 94799-TC; 99082-TC; A6253; A6403; C9803; G0378; J1650; J1720; J2543; J2916; J3370; J3480; J3490; J7030; J7040; J7042; J7050; J7060; J8597; U0003

== ENCOUNTER 2023-01-24 15:34 | Inpatient (IN) | payer MEDICARE, OTHER ==
[2023-01-24] VITALS (13 sets, daily range): BP systolic 72–114; BP diastolic 36–80; TEMP 99.1; O2SAT 92–100
[~2023-01-24] VITALS: Ht 177.8 cm; Wt 88.9 kg
[~2023-01-24 15:34] MED LIST: ACET325T53 GT; AMIN30LI2 GT; ASCO500C18 GT; ASPI-1169 GT; ATOR80TA GT; CLOP75TA15 GT; CRAN425C6 GT; DOCU-141 GT; FAMO40TA7 GT; GABA250S2 GT; IPRA4AER IH; LACT-209 GT; METO5SOL GT; MIDO2.5T GT; ONDA4TAB5 GT; POLY17PO4 GT; PSYL1PAC8 GT; QUET25TA GT; SENN-261 GT; TRAZ-182 GT
[2023-01-24] MEDS ORDERED: CEFEPIME 2 GM in IV D5W 100 ML IV ONE (16:00)
[2023-01-24] MEDS ORDERED: VANCOMYCIN 1 GM in IV D5W 250 ML IV ONE (16:00)
[2023-01-24] MEDS ORDERED: CEFEPIME 2 GM in IV D5W 50 ML IV ONE (16:00)
[2023-01-24] MEDS ORDERED: IV NS 0.9% 1,000 ML BAG IV ONE ×2 (16:00→18:00)
[2023-01-24 16:01] LABS: BASOPHILS % (AUTO) 0.1 % (0.0-2.0); EOSINOPHILS # (AUTO) 0.1 K/uL (0.0-0.7); EOSINOPHILS % (AUTO) 0.4 % (0.0-6.0); HEMATOCRIT 40 % (39-51); HEMOGLOBIN 12.8 g/dL (13.5-17.5); LYMPHOCYTES # (AUTO) 0.6 K/uL (0.8-4.8); MEAN CORPUSCULAR HEMOGLOBIN 28 PG (26.0-33.0); MEAN CORPUSCULAR HGB CONC 32 g/dl (31.0-36.0); MEAN CORPUSCULAR VOLUME 87 fL (80-96); MONOCYTES # (AUTO) 1.9 K/uL (0.1-1.30); MONOCYTES % (AUTO) 5.9 % (2.0-12.0); NEUTROPHILS # (AUTO) 28.9 K/uL (1.8-8.9); NEUTROPHILS % (AUTO) 91.6 % (43.0-81.0); PLATELET COUNT (AUTO) 277 K/uL (150-450); RED BLOOD CELL COUNT(AUTO) 4.66 MIL/uL (4.5-6.0); RED CELL DISTRIBUTION WIDTH 14.8 % (11.5-15.0)
[2023-01-24 16:12] LABS: CALCIUM, SERUM 8.6 mg/dL (8.5-10.1); CARBON DIOXIDE 30 mmol/L (21-32); CHLORIDE 97 mmol/L (98-107); CREATININE 1.9 mg/dL (0.6-1.3); GLUCOSE 150 mg/dL (74-106); POTASSIUM 6.1 mmol/L (3.5-5.1); SODIUM SERUM 133 mmol/L (136-145); UREA NITROGEN, BLOOD 64 mg/dL (7-18)
[2023-01-24 16:18] LABS: ALANINE AMINOTRANSFERASE 34 U/L (12-78); ALBUMIN 1.6 g/dL (3.4-5.0); ALKALINE PHOSPHATASE 136 U/L (46-116); ASPARTATE AMINOTRANSFERASE 45 U/L (15-37); BILIRUBIN,DIRECT 0.2 mg/dL (0.0-0.2); BILIRUBIN,TOTAL 0.4 mg/dL (0.2-1.0); TOTAL PROTEIN, SERUM 5.7 g/dL (6.4-8.2)
[2023-01-24 16:23] LABS: LACTIC ACID 3.7 mmol/L (0.4-2.0)
[2023-01-24 16:24] LABS: INR 1.16 (0.91-1.10); PARTIAL THROMBOPLASTIN TIME 36.6 SEC (24.3-34.3); PROTHROMBIN TIME 12.2 SECS (9.2-11.1)
[2023-01-24 16:37] LABS: WHITE BLOOD COUNT (AUTO) 31.6 K/uL (4.3-11.0)
[2023-01-24 16:47] LABS: ANISOCYTOSIS 1+; BAND % (MANUAL) 12 % (0.0-5.0); LYMPHOCYTES % (MANUAL) 9 % (16-48); METAMYELOCYTES % 1 % (0-0); MONOCYTES % (MANUAL) 4 % (0-11.0); NEUTROPHILS % (MANUAL) 74 (42-76); PLATELET ESTIMATE ADEQUATE; ROULEAUX 1+
[2023-01-24] MEDS ORDERED: ACET-2605 GT (16:48)
[2023-01-24] MEDS ORDERED: NA P133E RC (16:48)
[2023-01-24] MEDS ORDERED: FERR300L GT (16:48)
[2023-01-24] MEDS ORDERED: ERYT400S8 GT (16:48)
[2023-01-24] MEDS ORDERED: ZINC50TA65 GT (16:48)
[2023-01-24] MEDS ORDERED: MAGN400O6 GT (16:48)
[2023-01-24] MEDS ORDERED: HYDR-4303 GT (16:48)
[2023-01-24] MEDS ORDERED: POLY15DR40 EACHEYE (16:48)
[2023-01-24] MEDS ORDERED: MULT9LIQ6 GT (16:48)
[2023-01-24] MEDS ORDERED: BISA10SU11 RC (16:48)
[2023-01-24] MEDS ORDERED: LEVA0.6320 IH ×2 (16:48)
[2023-01-24] MEDS ORDERED: IPRA0.2S9 IH ×2 (16:48)
[2023-01-24] MEDS ORDERED: SENN-261 GT (16:48)
[2023-01-24] MEDS ORDERED: LACT100027 GT (16:48)
[2023-01-24] MEDS ORDERED: ASCO500T10 GT (16:48)
[2023-01-24] MEDS ORDERED: EYEL1KIT TP (16:48)
[2023-01-24] MEDS ORDERED: LANS30CA56 GT (16:48)
[2023-01-24] MEDS ORDERED: NITR0.4T48 SL (16:48)
[2023-01-24] MEDS ORDERED: BROM1.7D9 EACHEYE (16:48)
[2023-01-24] MEDS ORDERED: SUCR1ORA4 GT (16:48)
[2023-01-24] MEDS ORDERED: VANC250C12 GT (17:45)
[2023-01-24] MEDS ORDERED: FLAGYL/NS RTU 500 MG/100 ML PIGGYBACK IV ONE ×2 (18:00→18:30)
[2023-01-24] MEDS ORDERED: ACETAMINOPHEN 650 MG/SUPP.RECT RC ONE ×2 (18:00→18:44)
[2023-01-24] MEDS ORDERED: NOREPINEPHRINE 8MG/250ML RTU 250 ML IV ONE (18:12)
[2023-01-24] MEDS ORDERED: NOREPINEPHRINE 8 MG in IV NS 0.9% 242 ML IV PRN ×2 (18:30→22:00)
[2023-01-24] MEDS ORDERED: METRONIDAZOLE 500MG/ NS 100ML 100 ML IV ONE ×2 (18:30→23:45)
[2023-01-24 18:37] LABS: APPEARANCE,URINE CLOUDY (CLEAR); BILIRUBIN,URINE NEGATIVE (NEGATIVE); BLOOD, URINE 2+ Ery/uL (NEGATIVE); COLOR,URINE YELLOW (YELLOW); KETONES,URINE TRACE mg/dL (NEGATIVE); LEUKOCYTE ESTERASE ,URINE NEGATIVE (NEGATIVE); NITRITE, URINE POSITIVE (NEGATIVE); PROTEIN,URINE 2+ mg/dl (NEGATIVE); UGLUCOSE NEGATIVE (NEGATIVE)
[2023-01-24 19:31] LABS: ADD URINE CULTURE YES; BACTERIA,URINE 1+ /HPF (None Seen); RBC,URINE 21-50 /HPF (0-2); WBC,URINE 0-2 /HPF (0-3)
[2023-01-24 19:32] LABS: CALCIUM OXALATE CRYSTALS,UR Few /HPF (None Seen); COARSE GRANULAR CASTS,URINE Few /LPF (None Seen)
[2023-01-24] MEDS ORDERED: Calcium Gluconate 1GM/10ML 4.65 MEQ in IV NS 0.9% 100 ML IV ONE (20:30)
[2023-01-24] MEDS ORDERED: SODIUM POLYSTYRENE SULFONATE 15 G/60 ML BOTTLE PO ONE (20:30)
[2023-01-24] MEDS ORDERED: SODIUM BICARBONATE SYR 50 MEQ/50 ML DISP.SYRIN IV ONE (20:30)
[2023-01-24] MEDS ORDERED: ALBUTEROL FS 2.5 MG/3 ML VIAL.NEB NEB ONE (20:30)
[2023-01-24] MEDS ORDERED: Calcium Gluconate 0.465 MEQ/ML VIAL IV ONE (21:15)
[2023-01-24] MEDS ORDERED: SODIUM BICARBONATE SYR 50 MEQ/50 ML DISP.SYRIN ONE (21:15)
[2023-01-24] MEDS ORDERED: ALBUTEROL FS 2.5 MG/3 ML VIAL.NEB ONE (21:37)
[2023-01-24] MEDS ORDERED: ATORVASTATIN 10 MG TABLET GT SCH (22:00)
[2023-01-24] MEDS ORDERED: ZOLPIDEM TARTRATE 5 MG TABLET PO PRN (22:00)
[2023-01-24] MEDS ORDERED: MAG HYDROX/AL HYDROX/SIMETH 30 ML UDC PO PRN (22:00)
[2023-01-24] MEDS ORDERED: MAGNESIUM HYDROXIDE 30 ML UDC PO PRN (22:00)
[2023-01-24] MEDS ORDERED: BISACODYL SUPP (10 MG) 10 MG/SUPP.RECT SUPP.RECT RC PRN (22:00)
[2023-01-24] MEDS ORDERED: ACETAMINOPHEN 325 MG TABLET PO PRN (22:00)
[2023-01-24] MEDS ORDERED: ONDANSETRON HCL/PF 4 MG/2 ML VIAL IVP PRN (22:00)
[2023-01-24] MEDS ORDERED: Z GUARD REMEDY 4 OZ OINT TP PRN (22:00)
[2023-01-24] MEDS ORDERED: IPRATROPIUM NEB FS 0.5 MG/2.5 ML AMPUL.NEB NEB PRN (22:30)
[2023-01-24] MEDS ORDERED: ALBUTEROL FS 2.5 MG/0.5 ML VIAL.NEB NEB PRN (22:30)
[2023-01-24] MEDS ORDERED: CEFEPIME 1 GM VIAL ONE (22:46)
[2023-01-24] MEDS: NOREPINEPHRINE 8 MG in IV NS 0.9% 242 ML IV PRN ×2 (22:49→23:41)
[2023-01-24] MEDS: CEFEPIME 2 GM in IV D5W 100 ML IV SCH (22:57)
[2023-01-24] MEDS: METRONIDAZOLE 500MG/ NS 100ML 500 MG in PREMIX 1 EA IV SCH (23:48)
[2023-01-25] VITALS (101 sets, daily range): BP systolic 50–150; BP diastolic 18–100; TEMP 98.4–104.1; O2SAT 79–100
[2023-01-25 00:49] LABS: ABG BASE EXCESS -5.3 mmol/L; ABG OXYGEN SATURATION 99.4 % (92.0-98.5); ABG PCO2 40.2 mmHg (35.0-45.0); ABG PH 7.323 (7.350-7.450); ABG PO2 237.5 mmHg (75.0-100.0); ABG TOTAL HEMOGLOBIN 13.9 G/dL (13.5-18.0); COHb 0.3 % (0.5-1.5); MetHb 0.6 % (0.0-1.5); O2Hb 98.5 % (94.0-97.0); PEEP,BG 5 cm H2O; SITE, ABG Left Radial; VENT MODE, BG AC 16 500 100% +5; VT, ABG 500 mL
[2023-01-25] MEDS ORDERED: PHENYLEPHRINE 50 MG in IV NS 0.9% 245 ML IV PRN (01:00)
[2023-01-25] MEDS ORDERED: PHENYLEPHRINE 10 MG/ML VIAL ONE (01:20)
[2023-01-25] MEDS: NOREPINEPHRINE 8 MG in IV NS 0.9% 242 ML IV PRN ×3 (02:25→06:33)
[2023-01-25] MEDS ORDERED: IV NS 0.9% 1,000 ML IV ONE (03:30)
[2023-01-25] MEDS ORDERED: NOREPINEPHRINE 8MG/250ML RTU 250 ML IV ONE ×2 (04:25→06:25)
[2023-01-25] MEDS: CEFEPIME 2 GM in IV D5W 100 ML IV SCH ×3 (05:00→20:45)
[2023-01-25] MEDS ORDERED: CEFEPIME 2 GM in IV D5W 100 ML IV SCH (05:00)
[2023-01-25] MEDS ORDERED: METRONIDAZOLE 500MG/ NS 100ML 100 ML IV ONE (05:50)
[2023-01-25] MEDS: METRONIDAZOLE 500MG/ NS 100ML 500 MG in PREMIX 1 EA IV SCH ×4 (05:54→23:46)
[2023-01-25] MEDS: ASCORBIC ACID 500 MG TABLET GT SCH (08:09)
[2023-01-25] MEDS: PROSOURCE / PROSTAT (PYXIS) 30 ML UDC GT SCH ×2 (08:09→16:48)
[2023-01-25] MEDS: DOCUSATE SODIUM 100 MG CAPSULE PO SCH ×2 (08:10→20:49)
[2023-01-25] MEDS ORDERED: FERROUS SULFATE UDC 300 MG/5 ML UDC GT SCH (09:00)
[2023-01-25] MEDS ORDERED: CRANBERRY EXT/C/L. SPOROGENES 405 MG/TAB TABLET GT SCH (09:00)
[2023-01-25] MEDS ORDERED: POLYVINYL ALCOHOL 15 ML BOTTLE EACHEYE SCH (09:00)
[2023-01-25] MEDS: MULTIVIT W/MINERALS 1 TAB TABLET GT SCH (09:00)
[2023-01-25] MEDS ORDERED: DOCUSATE SODIUM 100 MG CAPSULE PO SCH (09:00)
[2023-01-25] MEDS: PANTOPRAZOLE 40 MG VIAL IV SCH (09:32)
[2023-01-25] MEDS: HYDROCORTISONE SOD SUCCINATE 100 MG/2 ML VIAL IV SCH ×3 (09:32→20:48)
[2023-01-25] MEDS: POLYVINYL ALCOHOL 15 ML BOTTLE EACHEYE SCH ×3 (09:34→17:30)
[2023-01-25] MEDS: NOREPINEPHRINE 32 MG in IV NS 0.9% 218 ML IV PRN ×2 (09:54→20:42)
[2023-01-25 09:55] LABS: BASOPHILS # (AUTO) 0.1 K/uL (0.0-0.2); BASOPHILS % (AUTO) 0.2 % (0.0-2.0); EOSINOPHILS # (AUTO) 0.1 K/uL (0.0-0.7); EOSINOPHILS % (AUTO) 0.2 % (0.0-6.0); HEMATOCRIT 41 % (39-51); HEMOGLOBIN 12.5 g/dL (13.5-17.5); LYMPHOCYTES # (AUTO) 0.6 K/uL (0.8-4.8); LYMPHOCYTES % (AUTO) 1.9 % (20.0-44.0); MEAN CORPUSCULAR HEMOGLOBIN 27 PG (26.0-33.0); MEAN CORPUSCULAR HGB CONC 31 g/dl (31.0-36.0); MEAN CORPUSCULAR VOLUME 88 fL (80-96); MONOCYTES # (AUTO) 1.3 K/uL (0.1-1.30); NEUTROPHILS # (AUTO) 30.9 K/uL (1.8-8.9); NEUTROPHILS % (AUTO) 93.7 % (43.0-81.0); PLATELET COUNT (AUTO) 224 K/uL (150-450); RED BLOOD CELL COUNT(AUTO) 4.58 MIL/uL (4.5-6.0)
[2023-01-25 10:03] LABS: WHITE BLOOD COUNT (AUTO) 32.9 K/uL (4.3-11.0)
[2023-01-25 10:09] LABS: CREATININE 2.1 mg/dL (0.6-1.3); POTASSIUM 4.7 mmol/L (3.5-5.1)
[2023-01-25 10:15] LABS: BILIRUBIN,TOTAL 0.4 mg/dL (0.2-1.0); MAGNESIUM 3.2 mg/dL (1.8-2.4); TOTAL PROTEIN, SERUM 5.3 g/dL (6.4-8.2)
[2023-01-25 10:17] LABS: ALBUMIN 1.3 g/dL (3.4-5.0)
[2023-01-25] MEDS ORDERED: MORPHINE SULFATE INJ 4 MG/ML DISP.SYRIN IV PRN (11:00)
[2023-01-25] MEDS: PHENYLEPHRINE 100 MG in IV NS 0.9% 240 ML IV PRN ×2 (11:53→20:37)
[2023-01-25] MEDS: LORAZEPAM INJ 2 MG/ML VIAL IVP PRN (12:02)
[2023-01-25] MEDS: FLUDROCORTISONE 0.1 MG TABLET PO SCH ×2 (12:02→17:53)
[2023-01-25 13:57] LABS: BAND % (MANUAL) 13 % (0.0-5.0); LYMPHOCYTES % (MANUAL) 2 % (16-48); MONOCYTES % (MANUAL) 4 % (0-11.0); NEUTROPHILS % (MANUAL) 81 (42-76); PLATELET ESTIMATE ADEQUATE
[2023-01-25 13:58] LABS: ANISOCYTOSIS 1+
[2023-01-25] MEDS: ALBUMIN 25% 25 GM in PREMIX 1 EA IV SCH ×2 (14:02→22:24)
[2023-01-25] MEDS ORDERED: VASOPRESSIN INJ 40 UNIT in IV NS 0.9% 38 ML IV PRN (15:00)
[2023-01-25] MEDS: IV D5/ 0.9% NACL 1,000 ML IV PRN (16:34)
[2023-01-25] MEDS ORDERED: VANCOMYCIN 1 GM in IV D5W 250ml IV SCH (17:00)
[2023-01-25] MEDS ORDERED: ACETAMINOPHEN 650 MG/SUPP.RECT RC PRN (18:00)
[2023-01-25] MEDS: VANCOMYCIN FOR RECTAL ENEMA 500 MG RC SCH (21:00)
[2023-01-26] VITALS (93 sets, daily range): BP systolic 71–130; BP diastolic 55–93; TEMP 97.5–98.7; O2SAT 88–100
[2023-01-26] MEDS: POLYVINYL ALCOHOL 15 ML BOTTLE EACHEYE SCH ×4 (00:31→18:45)
[2023-01-26] MEDS: VANCOMYCIN FOR RECTAL ENEMA 500 MG RC SCH ×3 (04:17→21:11)
[2023-01-26] MEDS: ALBUMIN 25% 25 GM in PREMIX 1 EA IV SCH (04:57)
[2023-01-26] MEDS: HYDROCORTISONE SOD SUCCINATE 100 MG/2 ML VIAL IV SCH ×3 (04:57→21:11)
[2023-01-26 05:34] LABS: BASOPHILS % (AUTO) 0.1 % (0.0-2.0); EOSINOPHILS % (AUTO) 0.1 % (0.0-6.0); HEMATOCRIT 33 % (39-51); HEMOGLOBIN 10.6 g/dL (13.5-17.5); LYMPHOCYTES # (AUTO) 0.9 K/uL (0.8-4.8); LYMPHOCYTES % (AUTO) 3.6 % (20.0-44.0); MEAN CORPUSCULAR HEMOGLOBIN 28 PG (26.0-33.0); MEAN CORPUSCULAR HGB CONC 32 g/dl (31.0-36.0); MEAN CORPUSCULAR VOLUME 87 fL (80-96); MONOCYTES # (AUTO) 1.6 K/uL (0.1-1.30); MONOCYTES % (AUTO) 6.3 % (2.0-12.0); NEUTROPHILS # (AUTO) 23.3 K/uL (1.8-8.9); NEUTROPHILS % (AUTO) 89.9 % (43.0-81.0); PLATELET COUNT (AUTO) 120 K/uL (150-450); RED BLOOD CELL COUNT(AUTO) 3.84 MIL/uL (4.5-6.0); RED CELL DISTRIBUTION WIDTH 14.9 % (11.5-15.0); WHITE BLOOD COUNT (AUTO) 25.9 K/uL (4.3-11.0)
[2023-01-26] MEDS: METRONIDAZOLE 500MG/ NS 100ML 500 MG in PREMIX 1 EA IV SCH ×3 (05:34→18:45)
[2023-01-26] MEDS: IV D5/ 0.9% NACL 1,000 ML IV PRN ×2 (05:38→17:33)
[2023-01-26 05:48] LABS: CREATINE KINASE, TOTAL 286 U/L (39-308)
[2023-01-26] MEDS: FLUDROCORTISONE 0.1 MG TABLET PO SCH ×2 (05:48)
[2023-01-26] MEDS: VANCOMYCIN HCL 125 MG/2.5 ML ORAL.SUSP PO SCH ×2 (05:48)
[2023-01-26 05:54] LABS: BAND % (MANUAL) 1 % (0.0-5.0); LYMPHOCYTES % (MANUAL) 4 % (16-48); MONOCYTES % (MANUAL) 4 % (0-11.0); NEUTROPHILS % (MANUAL) 91 (42-76); PLATELET ESTIMATE DECREASED
[2023-01-26 05:55] LABS: ANISOCYTOSIS 1+; OVALOCYTES 1+
[2023-01-26 05:58] LABS: ALBUMIN 1.9 g/dL (3.4-5.0); BILIRUBIN,TOTAL 0.4 mg/dL (0.2-1.0); CALCIUM, SERUM 7.6 mg/dL (8.5-10.1); CREATININE 1.7 mg/dL (0.6-1.3); MAGNESIUM 3.2 mg/dL (1.8-2.4); POTASSIUM 4.1 mmol/L (3.5-5.1)
[2023-01-26 06:49] LABS: ABG BASE EXCESS -2.7 mmol/L; ABG PCO2 39.9 mmHg (35.0-45.0); ABG PH 7.366 (7.350-7.450); ABG PO2 74.4 mmHg (75.0-100.0); ABG TOTAL HEMOGLOBIN 13.7 G/dL (13.5-18.0); AaDO2 309.5 mmHg; COHb 0.4 % (0.5-1.5); MetHb 0.3 % (0.0-1.5); O2Hb 93.3 % (94.0-97.0); SITE, ABG Right Femoral; VENT MODE, BG AC 16 500 60%
[2023-01-26] MEDS: MULTIVIT W/MINERALS 1 TAB TABLET GT SCH (08:28)
[2023-01-26] MEDS: PROSOURCE / PROSTAT (PYXIS) 30 ML UDC GT SCH ×2 (08:28→17:00)
[2023-01-26] MEDS: PANTOPRAZOLE 40 MG VIAL IV SCH (08:29)
[2023-01-26] MEDS: ASCORBIC ACID 500 MG TABLET GT SCH (08:29)
[2023-01-26] MEDS: CEFEPIME 2 GM in IV D5W 100 ML IV SCH ×2 (08:30→21:11)
[2023-01-26] MEDS ORDERED: MAG HYDROX/AL HYDROX/SIMETH 30 ML UDC GT PRN (08:30)
[2023-01-26] MEDS ORDERED: MAGNESIUM HYDROXIDE 30 ML UDC GT PRN (08:30)
[2023-01-26] MEDS ORDERED: VANCOMYCIN HCL 125 MG/2.5 ML ORAL.SUSP GT SCH (08:31)
[2023-01-26] MEDS ORDERED: DOCUSATE SODIUM LIQ 100 MG/10 ML UDC GT PRN (09:00)
[2023-01-26] MEDS: VANCOMYCIN HCL 125 MG/2.5 ML ORAL.SUSP GT SCH ×3 (09:09→19:56)
[2023-01-26] MEDS: NOREPINEPHRINE 32 MG in IV NS 0.9% 218 ML IV PRN (11:50)
[2023-01-26] MEDS ORDERED: NEPRO 1,000 ML BOTTLE GT PRN (12:00)
[2023-01-26] MEDS: FLUDROCORTISONE 0.1 MG TABLET GT SCH ×2 (12:24→18:45)
[2023-01-27] VITALS (91 sets, daily range): BP systolic 82–124; BP diastolic 67–107; TEMP 97.1–97.8; O2SAT 95–100
[2023-01-27] MEDS: FLUDROCORTISONE 0.1 MG TABLET GT SCH ×5 (00:13→23:20)
[2023-01-27] MEDS: METRONIDAZOLE 500MG/ NS 100ML 500 MG in PREMIX 1 EA IV SCH ×5 (00:13→23:22)
[2023-01-27] MEDS: POLYVINYL ALCOHOL 15 ML BOTTLE EACHEYE SCH ×5 (00:14→23:23)
[2023-01-27] MEDS: VANCOMYCIN HCL 125 MG/2.5 ML ORAL.SUSP GT SCH ×4 (02:34→23:21)
[2023-01-27] MEDS: LORAZEPAM INJ 2 MG/ML VIAL IVP PRN ×2 (03:19→07:54)
[2023-01-27] MEDS: HYDROCORTISONE SOD SUCCINATE 100 MG/2 ML VIAL IV SCH ×3 (04:58→20:50)
[2023-01-27] MEDS: VANCOMYCIN FOR RECTAL ENEMA 500 MG RC SCH ×3 (04:58→20:51)
[2023-01-27] MEDS: IV D5/ 0.9% NACL 1,000 ML IV PRN ×2 (05:02→20:51)
[2023-01-27 05:34] LABS: CREATININE 1.8 mg/dL (0.6-1.3); MAGNESIUM 3.2 mg/dL (1.8-2.4); PHOSPHORUS 3.4 mg/dL (2.5-4.9); POTASSIUM 4.3 mmol/L (3.5-5.1)
[2023-01-27] MEDS: PANTOPRAZOLE 40 MG VIAL IV SCH (08:14)
[2023-01-27] MEDS: CEFEPIME 2 GM in IV D5W 100 ML IV SCH (08:14)
[2023-01-27] MEDS: MULTIVIT W/MINERALS 1 TAB TABLET GT SCH (08:14)
[2023-01-27] MEDS: ASCORBIC ACID 500 MG TABLET GT SCH (08:14)
[2023-01-27] MEDS: PROSOURCE / PROSTAT (PYXIS) 30 ML UDC GT SCH ×2 (08:15→20:50)
[2023-01-27] MEDS: NOREPINEPHRINE 32 MG in IV NS 0.9% 218 ML IV PRN (09:35)
[2023-01-27 09:45] LABS: BASOPHILS # (AUTO) 0.2 K/uL (0.0-0.2); BASOPHILS % (AUTO) 0.7 % (0.0-2.0); EOSINOPHILS % (AUTO) 0.1 % (0.0-6.0); HEMATOCRIT 35 % (39-51); HEMOGLOBIN 10.9 g/dL (13.5-17.5); LYMPHOCYTES # (AUTO) 0.5 K/uL (0.8-4.8); LYMPHOCYTES % (AUTO) 1.8 % (20.0-44.0); MEAN CORPUSCULAR HEMOGLOBIN 27 PG (26.0-33.0); MEAN CORPUSCULAR HGB CONC 31 g/dl (31.0-36.0); MEAN CORPUSCULAR VOLUME 88 fL (80-96); MONOCYTES # (AUTO) 1.4 K/uL (0.1-1.30); MONOCYTES % (AUTO) 5.2 % (2.0-12.0); NEUTROPHILS # (AUTO) 25.7 K/uL (1.8-8.9); NEUTROPHILS % (AUTO) 92.2 % (43.0-81.0); PLATELET COUNT (AUTO) 79 K/uL (150-450); RED BLOOD CELL COUNT(AUTO) 4.01 MIL/uL (4.5-6.0); WHITE BLOOD COUNT (AUTO) 27.9 K/uL (4.3-11.0)
[2023-01-27] MEDS ORDERED: VANCOMYCIN FOR RECTAL ENEMA 500 MG RC SCH (14:00)
[2023-01-27 17:56] LABS: BAND % (MANUAL) 10 % (0.0-5.0); LYMPHOCYTES % (MANUAL) 9 % (16-48); MONOCYTES % (MANUAL) 5 % (0-11.0); NEUTROPHILS % (MANUAL) 76 (42-76); PLATELET ESTIMATE DECREASED
[2023-01-27 17:57] LABS: ANISOCYTOSIS 1+; ROULEAUX 1+
[2023-01-27] MEDS ORDERED: CEFEPIME 1 GM in IV D5W 50 ML IV SCH (21:00)
[2023-01-28] VITALS (97 sets, daily range): BP systolic 78–177; BP diastolic 65–95; TEMP 98.6–102.7; O2SAT 91–100
[2023-01-28 03:06] LABS: PTH, INTACT 212 pg/mL (15-65)
[2023-01-28 04:43] LABS: BASOPHILS # (AUTO) 0.1 K/uL (0.0-0.2); BASOPHILS % (AUTO) 0.2 % (0.0-2.0); EOSINOPHILS # (AUTO) 0.3 K/uL (0.0-0.7); EOSINOPHILS % (AUTO) 1.2 % (0.0-6.0); HEMATOCRIT 37 % (39-51); HEMOGLOBIN 11.6 g/dL (13.5-17.5); LYMPHOCYTES # (AUTO) 0.8 K/uL (0.8-4.8); LYMPHOCYTES % (AUTO) 2.9 % (20.0-44.0); MEAN CORPUSCULAR HEMOGLOBIN 28 PG (26.0-33.0); MEAN CORPUSCULAR HGB CONC 32 g/dl (31.0-36.0); MEAN CORPUSCULAR VOLUME 88 fL (80-96); MONOCYTES % (AUTO) 7.2 % (2.0-12.0); NEUTROPHILS % (AUTO) 88.5 % (43.0-81.0); PLATELET COUNT (AUTO) 77 K/uL (150-450); RED BLOOD CELL COUNT(AUTO) 4.19 MIL/uL (4.5-6.0); RED CELL DISTRIBUTION WIDTH 15.1 % (11.5-15.0); WHITE BLOOD COUNT (AUTO) 28.2 K/uL (4.3-11.0)
[2023-01-28 04:55] LABS: CALCIUM, SERUM 7.9 mg/dL (8.5-10.1); CREATININE 1.7 mg/dL (0.6-1.3); MAGNESIUM 3.6 mg/dL (1.8-2.4); PHOSPHORUS 2.7 mg/dL (2.5-4.9); POTASSIUM 4.6 mmol/L (3.5-5.1)
[2023-01-28 05:08] LABS: ANISOCYTOSIS 1+; BAND % (MANUAL) 19 % (0.0-5.0); LYMPHOCYTES % (MANUAL) 2 % (16-48); METAMYELOCYTES % 5 % (0-0); MONOCYTES % (MANUAL) 3 % (0-11.0); MYELOCYTES % 9 % (0-0); NEUTROPHILS % (MANUAL) 62 (42-76); PLATELET ESTIMATE DECREASED
[2023-01-28 05:09] LABS: STOMATOCYTES 1+
[2023-01-28] MEDS: VANCOMYCIN FOR RECTAL ENEMA 500 MG RC SCH ×4 (05:33→20:37)
[2023-01-28] MEDS: HYDROCORTISONE SOD SUCCINATE 100 MG/2 ML VIAL IV SCH ×3 (05:33→17:05)
[2023-01-28] MEDS: POLYVINYL ALCOHOL 15 ML BOTTLE EACHEYE SCH ×4 (05:34→23:09)
[2023-01-28] MEDS: METRONIDAZOLE 500MG/ NS 100ML 500 MG in PREMIX 1 EA IV SCH ×4 (05:38→23:09)
[2023-01-28] MEDS: FLUDROCORTISONE 0.1 MG TABLET GT SCH ×4 (05:38→23:09)
[2023-01-28] MEDS: VANCOMYCIN HCL 125 MG/2.5 ML ORAL.SUSP GT SCH ×4 (05:38→23:09)
[2023-01-28] MEDS: NEPRO 1,000 ML BOTTLE GT PRN (05:39)
[2023-01-28] MEDS: NOREPINEPHRINE 32 MG in IV NS 0.9% 218 ML IV PRN (09:00)
[2023-01-28 09:07] LABS: *SPE A/G RATIO 0.8 (0.7-1.7); *SPE ALBUMIN 1.9 g/dL (2.9-4.4); *SPE ALPHA-1-GLOBULIN 0.4 g/dL (0.0-0.4); *SPE ALPHA-2-GLOBULIN 1.1 g/dL (0.4-1.0); *SPE BETA GLOBULIN 0.6 g/dL (0.7-1.3); *SPE GLOBULIN, TOTAL 2.5 g/dL (2.2-3.9); *SPE M-SPIKE Not Observed g/dL (Not Observed); *SPE PROTEIN TOTAL 4.4 g/dL (6.0-8.5); *SPEGAMMA GLOBULIN 0.4 g/dL (0.4-1.8)
[2023-01-28] MEDS: PROSOURCE / PROSTAT (PYXIS) 30 ML UDC GT SCH ×2 (09:14→20:37)
[2023-01-28] MEDS: PANTOPRAZOLE 40 MG/PACK PACK GT SCH (09:15)
[2023-01-28] MEDS: MULTIVIT W/MINERALS 1 TAB TABLET GT SCH (09:15)
[2023-01-28] MEDS: ASCORBIC ACID 500 MG TABLET GT SCH (09:15)
[2023-01-28] MEDS: ACETAMINOPHEN 650 MG/20.3 ML UDC GT PRN (09:17)
[2023-01-28] MEDS ORDERED: IV NS 0.9% 500 ML IV ONE (11:00)
[2023-01-28] MEDS: LORAZEPAM INJ 2 MG/ML VIAL IVP PRN (11:34)
[2023-01-28] MEDS ORDERED: MEROPENEM 500 MG in IV NS 0.9% 50 ML IV SCH (16:00)
[2023-01-28] MEDS: MEROPENEM 1 G in IV NS 0.9% 100 ML IV SCH (17:06)
[2023-01-28] MEDS: IV D5/ 0.9% NACL 1,000 ML IV PRN (17:56)
[2023-01-29] VITALS (64 sets, daily range): BP systolic 75–127; BP diastolic 14–91; TEMP 97.4–99; O2SAT 93–100
[2023-01-29 04:21] LABS: BASOPHILS # (AUTO) 0.1 K/uL (0.0-0.2); BASOPHILS % (AUTO) 0.2 % (0.0-2.0); EOSINOPHILS # (AUTO) 0.2 K/uL (0.0-0.7); EOSINOPHILS % (AUTO) 0.6 % (0.0-6.0); HEMATOCRIT 39 % (39-51); HEMOGLOBIN 12.2 g/dL (13.5-17.5); LYMPHOCYTES # (AUTO) 1.2 K/uL (0.8-4.8); LYMPHOCYTES % (AUTO) 4.4 % (20.0-44.0); MEAN CORPUSCULAR HEMOGLOBIN 28 PG (26.0-33.0); MEAN CORPUSCULAR HGB CONC 32 g/dl (31.0-36.0); MEAN CORPUSCULAR VOLUME 89 fL (80-96); MONOCYTES # (AUTO) 2.1 K/uL (0.1-1.30); MONOCYTES % (AUTO) 7.7 % (2.0-12.0); NEUTROPHILS # (AUTO) 23.8 K/uL (1.8-8.9); NEUTROPHILS % (AUTO) 87.1 % (43.0-81.0); PLATELET COUNT (AUTO) 76 K/uL (150-450); RED BLOOD CELL COUNT(AUTO) 4.35 MIL/uL (4.5-6.0); RED CELL DISTRIBUTION WIDTH 15.1 % (11.5-15.0); WHITE BLOOD COUNT (AUTO) 27.3 K/uL (4.3-11.0)
[2023-01-29 04:40] LABS: CREATININE 1.8 mg/dL (0.6-1.3); MAGNESIUM 3.6 mg/dL (1.8-2.4); PHOSPHORUS 2.8 mg/dL (2.5-4.9); POTASSIUM 4.6 mmol/L (3.5-5.1)
[2023-01-29 04:54] LABS: ANISOCYTOSIS 1+; BAND % (MANUAL) 14 % (0.0-5.0); LYMPHOCYTES % (MANUAL) 5 % (16-48); METAMYELOCYTES % 2 % (0-0); MONOCYTES % (MANUAL) 5 % (0-11.0); MYELOCYTES % 11 % (0-0); NEUTROPHILS % (MANUAL) 63 (42-76)
[2023-01-29 04:55] LABS: PLATELET ESTIMATE DECREASED; STOMATOCYTES 1+
[2023-01-29] MEDS: VANCOMYCIN HCL 125 MG/2.5 ML ORAL.SUSP GT SCH ×4 (05:29→23:36)
[2023-01-29] MEDS: VANCOMYCIN FOR RECTAL ENEMA 500 MG RC SCH ×3 (05:29→20:07)
[2023-01-29] MEDS: NEPRO 1,000 ML BOTTLE GT PRN (05:29)
[2023-01-29] MEDS: MEROPENEM 1 G in IV NS 0.9% 100 ML IV SCH ×2 (05:29→17:15)
[2023-01-29] MEDS: METRONIDAZOLE 500MG/ NS 100ML 500 MG in PREMIX 1 EA IV SCH ×4 (05:29→23:36)
[2023-01-29] MEDS: POLYVINYL ALCOHOL 15 ML BOTTLE EACHEYE SCH ×4 (05:30→23:37)
[2023-01-29] MEDS: FLUDROCORTISONE 0.1 MG TABLET GT SCH ×4 (05:31→23:36)
[2023-01-29] MEDS: IV D5/ 0.9% NACL 1,000 ML IV PRN ×2 (05:43→20:41)
[2023-01-29] MEDS: PANTOPRAZOLE 40 MG/PACK PACK GT SCH (08:40)
[2023-01-29] MEDS: ASCORBIC ACID 500 MG TABLET GT SCH (08:40)
[2023-01-29] MEDS: HYDROCORTISONE SOD SUCCINATE 100 MG/2 ML VIAL IV SCH ×2 (08:40→17:15)
[2023-01-29] MEDS: MULTIVIT W/MINERALS 1 TAB TABLET GT SCH (08:40)
[2023-01-29] MEDS: PROSOURCE / PROSTAT (PYXIS) 30 ML UDC GT SCH ×2 (08:40→20:07)
[2023-01-29] MEDS ORDERED: IV NS 0.9% 500 ML IV ONE (09:00)
[2023-01-29] MEDS: FIDAXOMICIN 200 MG TABLET PO SCH (17:15)
[2023-01-29] MEDS: PHENYLEPHRINE 100 MG in IV NS 0.9% 240 ML IV PRN (20:09)
[2023-01-30] VITALS (83 sets, daily range): BP systolic 73–120; BP diastolic 62–91; TEMP 97.7–98.8; O2SAT 88–100
[2023-01-30] MEDS: VANCOMYCIN FOR RECTAL ENEMA 500 MG RC SCH ×3 (05:28→20:46)
[2023-01-30] MEDS: MEROPENEM 1 G in IV NS 0.9% 100 ML IV SCH ×2 (05:28→17:01)
[2023-01-30] MEDS: METRONIDAZOLE 500MG/ NS 100ML 500 MG in PREMIX 1 EA IV SCH ×4 (05:29→23:43)
[2023-01-30] MEDS: VANCOMYCIN HCL 125 MG/2.5 ML ORAL.SUSP GT SCH ×4 (05:29→23:43)
[2023-01-30] MEDS: FLUDROCORTISONE 0.1 MG TABLET GT SCH ×4 (05:29→23:43)
[2023-01-30] MEDS: POLYVINYL ALCOHOL 15 ML BOTTLE EACHEYE SCH ×4 (05:30→23:45)
[2023-01-30 05:34] LABS: BASOPHILS # (AUTO) 0.1 K/uL (0.0-0.2); BASOPHILS % (AUTO) 0.3 % (0.0-2.0); EOSINOPHILS # (AUTO) 0.3 K/uL (0.0-0.7); EOSINOPHILS % (AUTO) 1.3 % (0.0-6.0); HEMATOCRIT 40 % (39-51); HEMOGLOBIN 12.5 g/dL (13.5-17.5); LYMPHOCYTES # (AUTO) 1.1 K/uL (0.8-4.8); LYMPHOCYTES % (AUTO) 4.4 % (20.0-44.0); MEAN CORPUSCULAR HEMOGLOBIN 28 PG (26.0-33.0); MEAN CORPUSCULAR HGB CONC 31 g/dl (31.0-36.0); MEAN CORPUSCULAR VOLUME 90 fL (80-96); MONOCYTES # (AUTO) 2.3 K/uL (0.1-1.30); MONOCYTES % (AUTO) 8.7 % (2.0-12.0); NEUTROPHILS # (AUTO) 22.1 K/uL (1.8-8.9); NEUTROPHILS % (AUTO) 85.3 % (43.0-81.0); PLATELET COUNT (AUTO) 102 K/uL (150-450); RED BLOOD CELL COUNT(AUTO) 4.47 MIL/uL (4.5-6.0); RED CELL DISTRIBUTION WIDTH 15.5 % (11.5-15.0); WHITE BLOOD COUNT (AUTO) 25.9 K/uL (4.3-11.0)
[2023-01-30 05:52] LABS: BAND % (MANUAL) 18 % (0.0-5.0); LYMPHOCYTES % (MANUAL) 1 % (16-48); METAMYELOCYTES % 1 % (0-0); MONOCYTES % (MANUAL) 7 % (0-11.0); MYELOCYTES % 8 % (0-0); NEUTROPHILS % (MANUAL) 65 (42-76); PLATELET ESTIMATE DECREASED
[2023-01-30] MEDS: IV D5/ 0.9% NACL 1,000 ML IV PRN ×2 (07:50→12:07)
[2023-01-30] MEDS: ASCORBIC ACID 500 MG TABLET GT SCH (09:33)
[2023-01-30] MEDS: HYDROCORTISONE SOD SUCCINATE 100 MG/2 ML VIAL IV SCH ×2 (09:33→17:01)
[2023-01-30] MEDS: PANTOPRAZOLE 40 MG/PACK PACK GT SCH ×2 (09:33→20:46)
[2023-01-30] MEDS: PROSOURCE / PROSTAT (PYXIS) 30 ML UDC GT SCH ×2 (09:33→20:46)
[2023-01-30] MEDS: MULTIVIT W/MINERALS 1 TAB TABLET GT SCH (09:34)
[2023-01-30] MEDS: FIDAXOMICIN 200 MG TABLET PO SCH ×2 (09:34→17:02)
[2023-01-30] MEDS: PHENYLEPHRINE 100 MG in IV NS 0.9% 240 ML IV PRN (13:36)
[2023-01-30] MEDS: IV 1/2NS 1000 ML 1,000 ML IV PRN (16:18)
[2023-01-31] VITALS (81 sets, daily range): BP systolic 39–125; BP diastolic 13–96; TEMP 97.5–99.2; O2SAT 96–100
[2023-01-31] MEDS: PHENYLEPHRINE 100 MG in IV NS 0.9% 240 ML IV PRN ×3 (00:01→20:37)
[2023-01-31] MEDS: VANCOMYCIN FOR RECTAL ENEMA 500 MG RC SCH ×3 (05:00→20:37)
[2023-01-31] MEDS: MEROPENEM 1 G in IV NS 0.9% 100 ML IV SCH ×2 (05:00→16:39)
[2023-01-31] MEDS: FLUDROCORTISONE 0.1 MG TABLET GT SCH ×4 (05:25→23:31)
[2023-01-31] MEDS: VANCOMYCIN HCL 125 MG/2.5 ML ORAL.SUSP GT SCH ×4 (05:26→23:32)
[2023-01-31] MEDS: METRONIDAZOLE 500MG/ NS 100ML 500 MG in PREMIX 1 EA IV SCH (05:26)
[2023-01-31] MEDS: POLYVINYL ALCOHOL 15 ML BOTTLE EACHEYE SCH ×4 (05:27→23:33)
[2023-01-31] MEDS: IV 1/2NS 1000 ML 1,000 ML IV PRN ×2 (05:54→19:13)
[2023-01-31 08:34] LABS: BASOPHILS % (AUTO) 0.1 % (0.0-2.0); HEMATOCRIT 36 % (39-51); HEMOGLOBIN 11.1 g/dL (13.5-17.5); LYMPHOCYTES # (AUTO) 1.5 K/uL (0.8-4.8); LYMPHOCYTES % (AUTO) 5.8 % (20.0-44.0); MEAN CORPUSCULAR HEMOGLOBIN 28 PG (26.0-33.0); MEAN CORPUSCULAR HGB CONC 31 g/dl (31.0-36.0); MEAN CORPUSCULAR VOLUME 91 fL (80-96); MONOCYTES % (AUTO) 11.9 % (2.0-12.0); NEUTROPHILS # (AUTO) 20.9 K/uL (1.8-8.9); NEUTROPHILS % (AUTO) 82.2 % (43.0-81.0); PLATELET COUNT (AUTO) 124 K/uL (150-450); RED BLOOD CELL COUNT(AUTO) 3.99 MIL/uL (4.5-6.0); RED CELL DISTRIBUTION WIDTH 15.3 % (11.5-15.0); WHITE BLOOD COUNT (AUTO) 25.5 K/uL (4.3-11.0)
[2023-01-31] MEDS: ASCORBIC ACID 500 MG TABLET GT SCH (08:40)
[2023-01-31] MEDS: FIDAXOMICIN 200 MG TABLET PO SCH ×2 (08:40→16:39)
[2023-01-31] MEDS: MULTIVIT W/MINERALS 1 TAB TABLET GT SCH (08:40)
[2023-01-31] MEDS: PANTOPRAZOLE 40 MG/PACK PACK GT SCH ×2 (08:40→20:36)
[2023-01-31] MEDS: HYDROCORTISONE SOD SUCCINATE 100 MG/2 ML VIAL IV SCH ×2 (08:41→16:39)
[2023-01-31] MEDS: PROSOURCE / PROSTAT (PYXIS) 30 ML UDC GT SCH ×2 (08:43→20:36)
[2023-01-31 08:50] LABS: CALCIUM, SERUM 7.3 mg/dL (8.5-10.1); CREATININE 1.6 mg/dL (0.6-1.3); POTASSIUM 4.5 mmol/L (3.5-5.1)
[2023-01-31 10:00] LABS: ANISOCYTOSIS 1+; BAND % (MANUAL) 1 % (0.0-5.0); LYMPHOCYTES % (MANUAL) 7 % (16-48); METAMYELOCYTES % 1 % (0-0); MONOCYTES % (MANUAL) 10 % (0-11.0); NEUTROPHILS % (MANUAL) 81 (42-76); PLATELET ESTIMATE DECREASED
[2023-01-31 10:01] LABS: HYPOCHROMASIA 1+
[2023-01-31] MEDS: METRONIDAZOLE 500 MG TABLET PO SCH ×3 (12:57→23:31)
[2023-01-31] MEDS: NEPRO 1,000 ML BOTTLE GT PRN (18:01)
[2023-01-31] MEDS: NOREPINEPHRINE 8 MG in IV NS 0.9% 250ML IV PRN (23:10)
[2023-02-01] VITALS (90 sets, daily range): BP systolic 93–140; BP diastolic 74–92; TEMP 98.1–100.4; O2SAT 92–100
[2023-02-01] MEDS: PHENYLEPHRINE 100 MG in IV NS 0.9% 240 ML IV PRN ×3 (04:22→20:47)
[2023-02-01] MEDS: IV 1/2NS 1000 ML 1,000 ML IV PRN (04:27)
[2023-02-01] MEDS: METRONIDAZOLE 500 MG TABLET PO SCH ×4 (05:06→23:25)
[2023-02-01] MEDS: VANCOMYCIN FOR RECTAL ENEMA 500 MG RC SCH ×3 (05:06→21:20)
[2023-02-01] MEDS: MEROPENEM 1 G in IV NS 0.9% 100 ML IV SCH ×2 (05:06→17:11)
[2023-02-01] MEDS: POLYVINYL ALCOHOL 15 ML BOTTLE EACHEYE SCH ×4 (05:06→23:25)
[2023-02-01] MEDS: FLUDROCORTISONE 0.1 MG TABLET GT SCH ×4 (05:06→23:25)
[2023-02-01] MEDS: VANCOMYCIN HCL 125 MG/2.5 ML ORAL.SUSP GT SCH ×4 (05:07→23:25)
[2023-02-01] MEDS: HYDROCORTISONE SOD SUCCINATE 100 MG/2 ML VIAL IV SCH ×2 (08:24→17:11)
[2023-02-01] MEDS: PROSOURCE / PROSTAT (PYXIS) 30 ML UDC GT SCH ×2 (08:24→21:20)
[2023-02-01] MEDS: ASCORBIC ACID 500 MG TABLET GT SCH (08:24)
[2023-02-01] MEDS: PANTOPRAZOLE 40 MG/PACK PACK GT SCH ×2 (08:24→21:20)
[2023-02-01] MEDS: MULTIVIT W/MINERALS 1 TAB TABLET GT SCH (08:24)
[2023-02-01] MEDS: FIDAXOMICIN 200 MG TABLET PO SCH ×2 (08:24→17:11)
[2023-02-01 08:59] LABS: BASOPHILS % (AUTO) 0.2 % (0.0-2.0); HEMATOCRIT 38 % (39-51); HEMOGLOBIN 11.6 g/dL (13.5-17.5); LYMPHOCYTES # (AUTO) 1.5 K/uL (0.8-4.8); LYMPHOCYTES % (AUTO) 5.9 % (20.0-44.0); MEAN CORPUSCULAR HEMOGLOBIN 28 PG (26.0-33.0); MEAN CORPUSCULAR HGB CONC 30 g/dl (31.0-36.0); MEAN CORPUSCULAR VOLUME 91 fL (80-96); MONOCYTES # (AUTO) 2.4 K/uL (0.1-1.30); MONOCYTES % (AUTO) 9.8 % (2.0-12.0); NEUTROPHILS # (AUTO) 20.9 K/uL (1.8-8.9); NEUTROPHILS % (AUTO) 84.1 % (43.0-81.0); PLATELET COUNT (AUTO) 160 K/uL (150-450); RED BLOOD CELL COUNT(AUTO) 4.21 MIL/uL (4.5-6.0); RED CELL DISTRIBUTION WIDTH 15.3 % (11.5-15.0); WHITE BLOOD COUNT (AUTO) 24.8 K/uL (4.3-11.0)
[2023-02-01 09:28] LABS: CALCIUM, SERUM 7.8 mg/dL (8.5-10.1); CREATININE 1.5 mg/dL (0.6-1.3); POTASSIUM 4.4 mmol/L (3.5-5.1)
[2023-02-01] MEDS: IV NS 0.9% 1,000 ML IV PRN ×3 (11:52→21:21)
[2023-02-01] MEDS ORDERED: IV NS 0.9% 1,000 ML BAG IV ONE (13:00)
[2023-02-01 13:45] LABS: BAND % (MANUAL) 4 % (0.0-5.0); LYMPHOCYTES % (MANUAL) 3 % (16-48); METAMYELOCYTES % 2 % (0-0); MONOCYTES % (MANUAL) 7 % (0-11.0); MYELOCYTES % 1 % (0-0); NEUTROPHILS % (MANUAL) 83 (42-76)
[2023-02-01 13:46] LABS: ANISOCYTOSIS 1+; HYPOCHROMASIA 1+; PLATELET ESTIMATE ADEQUATE; STOMATOCYTES 1+
[2023-02-01] MEDS: NOREPINEPHRINE 8 MG in IV NS 0.9% 250ML IV PRN (15:58)
[2023-02-01] MEDS: NEPRO 1,000 ML BOTTLE GT PRN ×3 (17:55→19:20)
[2023-02-01] MEDS: LORAZEPAM INJ 2 MG/ML VIAL IVP PRN (19:56)
[2023-02-02] VITALS (95 sets, daily range): BP systolic 77–119; BP diastolic 51–92; TEMP 97–99.4; O2SAT 96–100
[2023-02-02] MEDS: PHENYLEPHRINE 100 MG in IV NS 0.9% 240 ML IV PRN ×3 (03:49→20:00)
[2023-02-02] MEDS: MEROPENEM 1 G in IV NS 0.9% 100 ML IV SCH ×2 (04:27→17:33)
[2023-02-02] MEDS: VANCOMYCIN FOR RECTAL ENEMA 500 MG RC SCH ×3 (04:28→21:23)
[2023-02-02] MEDS: POLYVINYL ALCOHOL 15 ML BOTTLE EACHEYE SCH ×3 (04:28→17:35)
[2023-02-02] MEDS: FLUDROCORTISONE 0.1 MG TABLET GT SCH ×3 (05:04→17:34)
[2023-02-02] MEDS: METRONIDAZOLE 500 MG TABLET PO SCH ×3 (05:05→17:34)
[2023-02-02] MEDS: VANCOMYCIN HCL 125 MG/2.5 ML ORAL.SUSP GT SCH ×3 (05:05→17:37)
[2023-02-02] MEDS: HYDROCORTISONE SOD SUCCINATE 100 MG/2 ML VIAL IV SCH ×2 (08:16→17:35)
[2023-02-02] MEDS: PANTOPRAZOLE 40 MG/PACK PACK GT SCH ×2 (08:18→21:23)
[2023-02-02] MEDS: ASCORBIC ACID 500 MG TABLET GT SCH (08:18)
[2023-02-02] MEDS: MULTIVIT W/MINERALS 1 TAB TABLET GT SCH (08:18)
[2023-02-02] MEDS: PROSOURCE / PROSTAT (PYXIS) 30 ML UDC GT SCH ×2 (08:18→21:23)
[2023-02-02] MEDS: FIDAXOMICIN 200 MG TABLET PO SCH ×2 (08:19→17:35)
[2023-02-02] MEDS ORDERED: IV NS 0.9% 1,000 ML IV ONE (08:30)
[2023-02-02] MEDS: NOREPINEPHRINE 8 MG in IV NS 0.9% 250ML IV PRN (09:06)
[2023-02-02 09:18] LABS: BASOPHILS # (AUTO) 0.1 K/uL (0.0-0.2); BASOPHILS % (AUTO) 0.2 % (0.0-2.0); HEMATOCRIT 40 % (39-51); LYMPHOCYTES # (AUTO) 1.6 K/uL (0.8-4.8); LYMPHOCYTES % (AUTO) 4.9 % (20.0-44.0); MEAN CORPUSCULAR HEMOGLOBIN 28 PG (26.0-33.0); MEAN CORPUSCULAR HGB CONC 30 g/dl (31.0-36.0); MEAN CORPUSCULAR VOLUME 93 fL (80-96); MONOCYTES # (AUTO) 3.3 K/uL (0.1-1.30); MONOCYTES % (AUTO) 10.1 % (2.0-12.0); NEUTROPHILS # (AUTO) 27.9 K/uL (1.8-8.9); NEUTROPHILS % (AUTO) 84.8 % (43.0-81.0); PLATELET COUNT (AUTO) 150 K/uL (150-450); RED BLOOD CELL COUNT(AUTO) 4.28 MIL/uL (4.5-6.0); RED CELL DISTRIBUTION WIDTH 15.4 % (11.5-15.0)
[2023-02-02 09:35] LABS: WHITE BLOOD COUNT (AUTO) 32.9 K/uL (4.3-11.0)
[2023-02-02 09:47] LABS: BILIRUBIN,TOTAL 0.5 mg/dL (0.2-1.0); CALCIUM, SERUM 7.6 mg/dL (8.5-10.1); CREATININE 1.4 mg/dL (0.6-1.3); POTASSIUM 4.9 mmol/L (3.5-5.1); TOTAL PROTEIN, SERUM 4.2 g/dL (6.4-8.2)
[2023-02-02 10:07] LABS: ALBUMIN 1.3 g/dL (3.4-5.0)
[2023-02-02 10:55] LABS: LYMPHOCYTES % (MANUAL) 4 % (16-48); MONOCYTES % (MANUAL) 8 % (0-11.0); NEUTROPHILS % (MANUAL) 88 (42-76); PLATELET ESTIMATE ADEQUATE
[2023-02-02 10:56] LABS: ANISOCYTOSIS 1+
[2023-02-02] MEDS: NEPRO 1,000 ML BOTTLE GT PRN (18:14)
[2023-02-02] MEDS: CEFEPIME 2 GM in IV D5W 100 ML IV SCH (19:56)
[2023-02-03] VITALS (95 sets, daily range): BP systolic 76–117; BP diastolic 63–93; TEMP 97.4–100.5; O2SAT 85–100
[2023-02-03] MEDS: FLUDROCORTISONE 0.1 MG TABLET GT SCH ×5 (00:08→23:36)
[2023-02-03] MEDS: VANCOMYCIN HCL 125 MG/2.5 ML ORAL.SUSP GT SCH ×5 (00:08→23:36)
[2023-02-03] MEDS: METRONIDAZOLE 500 MG TABLET PO SCH ×5 (00:08→23:36)
[2023-02-03] MEDS: POLYVINYL ALCOHOL 15 ML BOTTLE EACHEYE SCH ×5 (00:10→23:38)
[2023-02-03] MEDS: NOREPINEPHRINE 8 MG in IV NS 0.9% 250ML IV PRN ×2 (02:31→21:19)
[2023-02-03] MEDS: PHENYLEPHRINE 100 MG in IV NS 0.9% 240 ML IV PRN ×3 (04:09→20:10)
[2023-02-03] MEDS: VANCOMYCIN FOR RECTAL ENEMA 500 MG RC SCH ×3 (04:11→21:36)
[2023-02-03 06:06] LABS: BASOPHILS % (AUTO) 0.2 % (0.0-2.0); EOSINOPHILS % (AUTO) 0.1 % (0.0-6.0); HEMATOCRIT 38 % (39-51); HEMOGLOBIN 11.8 g/dL (13.5-17.5); LYMPHOCYTES # (AUTO) 1.6 K/uL (0.8-4.8); LYMPHOCYTES % (AUTO) 5.7 % (20.0-44.0); MEAN CORPUSCULAR HEMOGLOBIN 28 PG (26.0-33.0); MEAN CORPUSCULAR HGB CONC 31 g/dl (31.0-36.0); MEAN CORPUSCULAR VOLUME 92 fL (80-96); MONOCYTES # (AUTO) 2.5 K/uL (0.1-1.30); MONOCYTES % (AUTO) 8.9 % (2.0-12.0); NEUTROPHILS # (AUTO) 23.8 K/uL (1.8-8.9); NEUTROPHILS % (AUTO) 85.1 % (43.0-81.0); PLATELET COUNT (AUTO) 144 K/uL (150-450); RED BLOOD CELL COUNT(AUTO) 4.15 MIL/uL (4.5-6.0); WHITE BLOOD COUNT (AUTO) 27.9 K/uL (4.3-11.0)
[2023-02-03 06:14] LABS: CALCIUM, SERUM 7.6 mg/dL (8.5-10.1); CREATININE 1.4 mg/dL (0.6-1.3); PHOSPHORUS 3.9 mg/dL (2.5-4.9); POTASSIUM 4.5 mmol/L (3.5-5.1)
[2023-02-03] MEDS: PANTOPRAZOLE 40 MG/PACK PACK GT SCH ×2 (08:14→21:36)
[2023-02-03] MEDS: HYDROCORTISONE SOD SUCCINATE 100 MG/2 ML VIAL IV SCH ×3 (08:14→21:35)
[2023-02-03] MEDS: FIDAXOMICIN 200 MG TABLET PO SCH ×2 (08:14→17:40)
[2023-02-03] MEDS: MULTIVIT W/MINERALS 1 TAB TABLET GT SCH (08:14)
[2023-02-03] MEDS: ACETAMINOPHEN 650 MG/20.3 ML UDC GT PRN (08:14)
[2023-02-03] MEDS: ASCORBIC ACID 500 MG TABLET GT SCH (08:14)
[2023-02-03] MEDS: PROSOURCE / PROSTAT (PYXIS) 30 ML UDC GT SCH ×2 (08:15→21:37)
[2023-02-03] MEDS ORDERED: IV NS 0.9% 1,000 ML IV ONE (08:30)
[2023-02-03] MEDS ORDERED: IV NS 0.9% 1,000 ML IV PRN (09:00)
[2023-02-03 09:47] LABS: ABG OXYGEN SATURATION 97.3 % (92.0-98.5); ABG PCO2 25.9 mmHg (35.0-45.0); ABG PH 7.411 (7.350-7.450); ABG PO2 102.9 mmHg (75.0-100.0); ABG TOTAL HEMOGLOBIN 12.3 G/dL (13.5-18.0); AaDO2 152.5 mmHg; COHb 0.3 % (0.5-1.5); SITE, ABG Left Radial
[2023-02-03] MEDS: NEPRO 1,000 ML BOTTLE GT PRN ×2 (10:13→23:27)
[2023-02-03 13:58] LABS: BAND % (MANUAL) 2 % (0.0-5.0); LYMPHOCYTES % (MANUAL) 5 % (16-48); METAMYELOCYTES % 1 % (0-0); MONOCYTES % (MANUAL) 8 % (0-11.0); NEUTROPHILS % (MANUAL) 84 (42-76); PLATELET ESTIMATE DECREASED
[2023-02-03 13:59] LABS: ANISOCYTOSIS 1+; TEAR DROP CELLS 1+
[2023-02-03] MEDS: CEFEPIME 2 GM in IV D5W 100 ML IV SCH (19:25)
[2023-02-03] MEDS ORDERED: IV 1/2NS 1000 ML 1,000 ML IV ONE (21:30)
[2023-02-04] VITALS (61 sets, daily range): BP systolic 77–135; BP diastolic 58–104; TEMP 96.8–98.4; O2SAT 93–100
[2023-02-04] MEDS: PHENYLEPHRINE 100 MG in IV NS 0.9% 240 ML IV PRN (04:15)
[2023-02-04] MEDS: METRONIDAZOLE 500 MG TABLET PO SCH ×4 (05:31→23:31)
[2023-02-04] MEDS: FLUDROCORTISONE 0.1 MG TABLET GT SCH ×4 (05:32→23:31)
[2023-02-04] MEDS: POLYVINYL ALCOHOL 15 ML BOTTLE EACHEYE SCH ×4 (05:32→23:31)
[2023-02-04] MEDS: HYDROCORTISONE SOD SUCCINATE 100 MG/2 ML VIAL IV SCH ×3 (05:32→20:52)
[2023-02-04] MEDS: VANCOMYCIN FOR RECTAL ENEMA 500 MG RC SCH ×3 (05:33→20:52)
[2023-02-04] MEDS: VANCOMYCIN HCL 125 MG/2.5 ML ORAL.SUSP GT SCH ×4 (05:34→23:32)
[2023-02-04 05:58] LABS: HEMATOCRIT 38 % (39-51); HEMOGLOBIN 11.6 g/dL (13.5-17.5); LYMPHOCYTES # (AUTO) 0.9 K/uL (0.8-4.8); LYMPHOCYTES % (AUTO) 3.6 % (20.0-44.0); MEAN CORPUSCULAR HEMOGLOBIN 28 PG (26.0-33.0); MEAN CORPUSCULAR HGB CONC 31 g/dl (31.0-36.0); MEAN CORPUSCULAR VOLUME 92 fL (80-96); MONOCYTES # (AUTO) 1.3 K/uL (0.1-1.30); MONOCYTES % (AUTO) 5.2 % (2.0-12.0); NEUTROPHILS # (AUTO) 22.7 K/uL (1.8-8.9); NEUTROPHILS % (AUTO) 91.2 % (43.0-81.0); PLATELET COUNT (AUTO) 130 K/uL (150-450); RED BLOOD CELL COUNT(AUTO) 4.08 MIL/uL (4.5-6.0); RED CELL DISTRIBUTION WIDTH 15.4 % (11.5-15.0); WHITE BLOOD COUNT (AUTO) 24.9 K/uL (4.3-11.0)
[2023-02-04 06:13] LABS: CALCIUM, SERUM 7.8 mg/dL (8.5-10.1); CREATININE 1.4 mg/dL (0.6-1.3); MAGNESIUM 2.7 mg/dL (1.8-2.4); PHOSPHORUS 4.2 mg/dL (2.5-4.9); POTASSIUM 4.6 mmol/L (3.5-5.1)
[2023-02-04] MEDS ORDERED: NOREPINEPHRINE 8MG/250ML RTU 250 ML IV ONE (06:28)
[2023-02-04] MEDS: NOREPINEPHRINE 8 MG in IV NS 0.9% 250ML IV PRN (06:32)
[2023-02-04] MEDS: ASCORBIC ACID 500 MG TABLET GT SCH (08:46)
[2023-02-04] MEDS: MULTIVIT W/MINERALS 1 TAB TABLET GT SCH (08:46)
[2023-02-04] MEDS: PANTOPRAZOLE 40 MG/PACK PACK GT SCH (08:46)
[2023-02-04] MEDS: FIDAXOMICIN 200 MG TABLET PO SCH ×2 (08:46→17:23)
[2023-02-04] MEDS: PROSOURCE / PROSTAT (PYXIS) 30 ML UDC GT SCH ×2 (08:46→20:52)
[2023-02-04] MEDS ORDERED: IV D5/0.45 NACL 1,000 ML IV ONE (09:00)
[2023-02-04] MEDS ORDERED: IV NS 0.9% 500 ML IV ONE (09:00)
[2023-02-04 10:21] LABS: LYMPHOCYTES % (MANUAL) 4 % (16-48); MONOCYTES % (MANUAL) 7 % (0-11.0); NEUTROPHILS % (MANUAL) 89 (42-76); PLATELET ESTIMATE DECREASED
[2023-02-04 10:22] LABS: ANISOCYTOSIS 1+; HYPOCHROMASIA 1+; TEAR DROP CELLS 1+
[2023-02-04] MEDS: PANTOPRAZOLE 40 MG VIAL IV SCH ×2 (13:31→20:52)
[2023-02-04] MEDS: CEFEPIME 2 GM in IV D5W 100 ML IV SCH (18:36)
[2023-02-05] VITALS (24 sets, daily range): BP systolic 86–120; BP diastolic 62–91; TEMP 96.6–97.6; O2SAT 80–100
[2023-02-05] MEDS: IV D5/0.45 NACL 1,000 ML IV PRN ×4 (00:24→20:29)
[2023-02-05 04:52] LABS: HEMATOCRIT 36 % (39-51); HEMOGLOBIN 10.7 g/dL (13.5-17.5); LYMPHOCYTES # (AUTO) 0.7 K/uL (0.8-4.8); LYMPHOCYTES % (AUTO) 3.6 % (20.0-44.0); MEAN CORPUSCULAR HEMOGLOBIN 28 PG (26.0-33.0); MEAN CORPUSCULAR HGB CONC 30 g/dl (31.0-36.0); MEAN CORPUSCULAR VOLUME 94 fL (80-96); MONOCYTES # (AUTO) 0.8 K/uL (0.1-1.30); MONOCYTES % (AUTO) 4.1 % (2.0-12.0); NEUTROPHILS # (AUTO) 18.4 K/uL (1.8-8.9); NEUTROPHILS % (AUTO) 92.3 % (43.0-81.0); PLATELET COUNT (AUTO) 93 K/uL (150-450); RED BLOOD CELL COUNT(AUTO) 3.79 MIL/uL (4.5-6.0); RED CELL DISTRIBUTION WIDTH 16.1 % (11.5-15.0)
[2023-02-05 05:02] LABS: CALCIUM, SERUM 7.5 mg/dL (8.5-10.1); CREATININE 1.3 mg/dL (0.6-1.3); MAGNESIUM 2.5 mg/dL (1.8-2.4); PHOSPHORUS 4.1 mg/dL (2.5-4.9); POTASSIUM 4.6 mmol/L (3.5-5.1)
[2023-02-05] MEDS: FLUDROCORTISONE 0.1 MG TABLET GT SCH ×4 (05:22→23:02)
[2023-02-05] MEDS: VANCOMYCIN FOR RECTAL ENEMA 500 MG RC SCH ×3 (05:22→20:06)
[2023-02-05] MEDS: HYDROCORTISONE SOD SUCCINATE 100 MG/2 ML VIAL IV SCH ×3 (05:22→20:05)
[2023-02-05] MEDS: METRONIDAZOLE 500 MG TABLET PO SCH ×4 (05:22→23:02)
[2023-02-05] MEDS: POLYVINYL ALCOHOL 15 ML BOTTLE EACHEYE SCH ×4 (05:23→23:01)
[2023-02-05] MEDS: VANCOMYCIN HCL 125 MG/2.5 ML ORAL.SUSP GT SCH ×4 (05:24→23:02)
[2023-02-05 05:28] LABS: BAND % (MANUAL) 5 % (0.0-5.0); LYMPHOCYTES % (MANUAL) 1 % (16-48); MONOCYTES % (MANUAL) 2 % (0-11.0); NEUTROPHILS % (MANUAL) 92 (42-76)
[2023-02-05 05:29] LABS: ANISOCYTOSIS 1+; PLATELET ESTIMATE DECREASED
[2023-02-05] MEDS: MULTIVIT W/MINERALS 1 TAB TABLET GT SCH (08:37)
[2023-02-05] MEDS: ASCORBIC ACID 500 MG TABLET GT SCH (08:37)
[2023-02-05] MEDS: PROSOURCE / PROSTAT (PYXIS) 30 ML UDC GT SCH ×2 (08:37→20:06)
[2023-02-05] MEDS: PANTOPRAZOLE 40 MG VIAL IV SCH ×2 (08:42→20:05)
[2023-02-05] MEDS: FIDAXOMICIN 200 MG TABLET PO SCH ×2 (08:42→17:00)
[2023-02-05] MEDS: METOCLOPRAMIDE HCL 10 MG/2 ML VIAL IV SCH ×2 (14:38→20:05)
[2023-02-05] MEDS ORDERED: IOHEXOL-300 100 ML VIAL IV ONE (17:29)
[2023-02-05] MEDS ORDERED: DIATR MEGLU/DIATRIZOATE SODIUM 120 ML BOTTLE (GASTROGRAPHIN) ONE (17:55)
[2023-02-05] MEDS: CEFEPIME 2 GM in IV D5W 100 ML IV SCH (19:47)
[2023-02-06] VITALS (24 sets, daily range): BP systolic 80–124; BP diastolic 58–88; TEMP 97.4–98; O2SAT 94–100
[2023-02-06] MEDS: METOCLOPRAMIDE HCL 10 MG/2 ML VIAL IV SCH ×2 (01:42→09:09)
[2023-02-06 04:13] LABS: BASOPHILS % (AUTO) 0.1 % (0.0-2.0); HEMATOCRIT 35 % (39-51); HEMOGLOBIN 10.3 g/dL (13.5-17.5); LYMPHOCYTES # (AUTO) 0.5 K/uL (0.8-4.8); LYMPHOCYTES % (AUTO) 2.4 % (20.0-44.0); MEAN CORPUSCULAR HEMOGLOBIN 28 PG (26.0-33.0); MEAN CORPUSCULAR HGB CONC 30 g/dl (31.0-36.0); MEAN CORPUSCULAR VOLUME 96 fL (80-96); MONOCYTES # (AUTO) 0.8 K/uL (0.1-1.30); MONOCYTES % (AUTO) 4.3 % (2.0-12.0); NEUTROPHILS # (AUTO) 18.3 K/uL (1.8-8.9); NEUTROPHILS % (AUTO) 93.2 % (43.0-81.0); PLATELET COUNT (AUTO) 89 K/uL (150-450); RED BLOOD CELL COUNT(AUTO) 3.61 MIL/uL (4.5-6.0); WHITE BLOOD COUNT (AUTO) 19.7 K/uL (4.3-11.0)
[2023-02-06 04:20] LABS: PHOSPHORUS 3.9 mg/dL (2.5-4.9); POTASSIUM 4.3 mmol/L (3.5-5.1)
[2023-02-06 04:31] LABS: CREATININE 1.2 mg/dL (0.6-1.3); MAGNESIUM 2.3 mg/dL (1.8-2.4)
[2023-02-06 05:00] LABS: BAND % (MANUAL) 1 % (0.0-5.0); LYMPHOCYTES % (MANUAL) 2 % (16-48); MONOCYTES % (MANUAL) 4 % (0-11.0); NEUTROPHILS % (MANUAL) 93 (42-76); PLATELET ESTIMATE DECREASED
[2023-02-06] MEDS: POLYVINYL ALCOHOL 15 ML BOTTLE EACHEYE SCH ×3 (05:46→17:41)
[2023-02-06] MEDS: VANCOMYCIN FOR RECTAL ENEMA 500 MG RC SCH ×3 (05:46→21:53)
[2023-02-06] MEDS: HYDROCORTISONE SOD SUCCINATE 100 MG/2 ML VIAL IV SCH ×3 (05:46→21:52)
[2023-02-06] MEDS: FLUDROCORTISONE 0.1 MG TABLET GT SCH ×3 (05:47→17:42)
[2023-02-06] MEDS: METRONIDAZOLE 500 MG TABLET PO SCH ×3 (05:47→17:43)
[2023-02-06] MEDS: VANCOMYCIN HCL 125 MG/2.5 ML ORAL.SUSP GT SCH ×3 (05:47→17:42)
[2023-02-06] MEDS: IV D5/0.45 NACL 1,000 ML IV PRN ×2 (05:48→14:58)
[2023-02-06] MEDS: ASCORBIC ACID 500 MG TABLET GT SCH (09:00)
[2023-02-06] MEDS: FIDAXOMICIN 200 MG TABLET PO SCH ×2 (09:00→17:41)
[2023-02-06] MEDS: MULTIVIT W/MINERALS 1 TAB TABLET GT SCH (09:00)
[2023-02-06] MEDS: PROSOURCE / PROSTAT (PYXIS) 30 ML UDC GT SCH ×2 (09:00→22:22)
[2023-02-06] MEDS: PANTOPRAZOLE 40 MG VIAL IV SCH ×2 (09:10→21:52)
[2023-02-06] MEDS: METOCLOPRAMIDE HCL 10 MG TABLET GT SCH ×2 (13:38→17:42)
[2023-02-06] MEDS: LORAZEPAM INJ 2 MG/ML VIAL IVP PRN (17:43)
[2023-02-06] MEDS: CEFEPIME 2 GM in IV D5W 100 ML IV SCH (18:28)
[2023-02-06] MEDS: POLYETHYLENE GLYCOL 3350 17 GM POWD.PACK PO SCH (21:52)
[2023-02-07] VITALS (18 sets, daily range): BP systolic 89–109; BP diastolic 64–83; TEMP 97.5–98; O2SAT 94–100
[2023-02-07] MEDS: VANCOMYCIN HCL 125 MG/2.5 ML ORAL.SUSP GT SCH ×4 (00:14→17:51)
[2023-02-07] MEDS: METOCLOPRAMIDE HCL 10 MG TABLET GT SCH ×4 (00:14→17:40)
[2023-02-07] MEDS: METRONIDAZOLE 500 MG TABLET PO SCH ×4 (00:15→17:40)
[2023-02-07] MEDS: FLUDROCORTISONE 0.1 MG TABLET GT SCH ×4 (00:15→17:40)
[2023-02-07] MEDS: POLYVINYL ALCOHOL 15 ML BOTTLE EACHEYE SCH ×4 (00:16→17:40)
[2023-02-07] MEDS: IV D5/0.45 NACL 1,000 ML IV PRN (01:18)
[2023-02-07 05:05] LABS: BASOPHILS % (AUTO) 0.2 % (0.0-2.0); HEMATOCRIT 33 % (39-51); HEMOGLOBIN 9.9 g/dL (13.5-17.5); LYMPHOCYTES # (AUTO) 0.4 K/uL (0.8-4.8); LYMPHOCYTES % (AUTO) 2.6 % (20.0-44.0); MEAN CORPUSCULAR HEMOGLOBIN 29 PG (26.0-33.0); MEAN CORPUSCULAR HGB CONC 30 g/dl (31.0-36.0); MEAN CORPUSCULAR VOLUME 96 fL (80-96); MONOCYTES # (AUTO) 0.5 K/uL (0.1-1.30); MONOCYTES % (AUTO) 3.5 % (2.0-12.0); NEUTROPHILS # (AUTO) 13.2 K/uL (1.8-8.9); NEUTROPHILS % (AUTO) 93.7 % (43.0-81.0); PLATELET COUNT (AUTO) 83 K/uL (150-450); RED BLOOD CELL COUNT(AUTO) 3.41 MIL/uL (4.5-6.0); RED CELL DISTRIBUTION WIDTH 16.7 % (11.5-15.0); WHITE BLOOD COUNT (AUTO) 14.1 K/uL (4.3-11.0)
[2023-02-07] MEDS: HYDROCORTISONE SOD SUCCINATE 100 MG/2 ML VIAL IV SCH ×3 (05:10→21:32)
[2023-02-07] MEDS: VANCOMYCIN FOR RECTAL ENEMA 500 MG RC SCH ×3 (05:11→21:32)
[2023-02-07 05:27] LABS: CALCIUM, SERUM 7.9 mg/dL (8.5-10.1); CREATININE 1.1 mg/dL (0.6-1.3); MAGNESIUM 2.2 mg/dL (1.8-2.4); PHOSPHORUS 3.6 mg/dL (2.5-4.9); POTASSIUM 4.2 mmol/L (3.5-5.1)
[2023-02-07 05:39] LABS: BILIRUBIN,DIRECT 0.3 mg/dL (0.0-0.2); BILIRUBIN,TOTAL 0.6 mg/dL (0.2-1.0); TOTAL PROTEIN, SERUM 4.1 g/dL (6.4-8.2)
[2023-02-07 05:48] LABS: ALBUMIN 1.4 g/dL (3.4-5.0)
[2023-02-07] MEDS: PANTOPRAZOLE 40 MG VIAL IV SCH (08:20)
[2023-02-07] MEDS: ASCORBIC ACID 500 MG TABLET GT SCH (08:20)
[2023-02-07] MEDS: MULTIVIT W/MINERALS 1 TAB TABLET GT SCH (08:20)
[2023-02-07] MEDS: FIDAXOMICIN 200 MG TABLET PO SCH ×2 (08:21→17:40)
[2023-02-07] MEDS: PROSOURCE / PROSTAT (PYXIS) 30 ML UDC GT SCH ×2 (08:23→21:31)
[2023-02-07] MEDS: NEPRO 1,000 ML BOTTLE GT PRN (09:35)
[2023-02-07] MEDS: CEFEPIME 2 GM in IV D5W 100 ML IV SCH ×2 (09:49→21:32)
[2023-02-07] MEDS: LORAZEPAM INJ 2 MG/ML VIAL IVP PRN (10:42)
[2023-02-07 10:56] LABS: LYMPHOCYTES % (MANUAL) 2 % (16-48); MONOCYTES % (MANUAL) 3 % (0-11.0); NEUTROPHILS % (MANUAL) 95 (42-76); PLATELET ESTIMATE DECREASED
[2023-02-07 10:57] LABS: ANISOCYTOSIS 1+; HYPOCHROMASIA 1+
[2023-02-07] MEDS ORDERED: NEPRO 1,000 ML BOTTLE GT PRN (17:30)
[2023-02-07] MEDS: PANTOPRAZOLE 40 MG/PACK PACK GT SCH (21:31)
[2023-02-07] MEDS: POLYETHYLENE GLYCOL 3350 17 GM POWD.PACK PO SCH (21:32)
[2023-02-08] VITALS: BP 99/74; TEMP 97.7; O2SAT 98
[2023-02-08] MEDS: POLYVINYL ALCOHOL 15 ML BOTTLE EACHEYE SCH ×5 (00:45→23:26)
[2023-02-08] MEDS: METOCLOPRAMIDE HCL 10 MG TABLET GT SCH ×5 (00:46→23:25)
[2023-02-08] MEDS: VANCOMYCIN HCL 125 MG/2.5 ML ORAL.SUSP GT SCH ×5 (00:46→23:25)
[2023-02-08] MEDS: FLUDROCORTISONE 0.1 MG TABLET GT SCH ×5 (00:46→23:24)
[2023-02-08] MEDS: METRONIDAZOLE 500 MG TABLET PO SCH ×5 (00:47→23:25)
[2023-02-08 04:00] VITALS: BP 95/68; TEMP 97.5; O2SAT 100
[2023-02-08] MEDS: ACETAMINOPHEN 650 MG/20.3 ML UDC GT PRN (05:11)
[2023-02-08] MEDS: HYDROCORTISONE SOD SUCCINATE 100 MG/2 ML VIAL IV SCH ×3 (05:11→20:28)
[2023-02-08] MEDS: VANCOMYCIN FOR RECTAL ENEMA 500 MG RC SCH ×2 (05:13→12:08)
[2023-02-08 07:24] LABS: HEMATOCRIT 31 % (39-51); HEMOGLOBIN 9.8 g/dL (13.5-17.5); LYMPHOCYTES # (AUTO) 0.6 K/uL (0.8-4.8); LYMPHOCYTES % (AUTO) 3.8 % (20.0-44.0); MEAN CORPUSCULAR HEMOGLOBIN 29 PG (26.0-33.0); MEAN CORPUSCULAR HGB CONC 31 g/dl (31.0-36.0); MEAN CORPUSCULAR VOLUME 93 fL (80-96); MONOCYTES # (AUTO) 0.8 K/uL (0.1-1.30); MONOCYTES % (AUTO) 5.7 % (2.0-12.0); NEUTROPHILS # (AUTO) 13.5 K/uL (1.8-8.9); NEUTROPHILS % (AUTO) 90.5 % (43.0-81.0); PLATELET COUNT (AUTO) 79 K/uL (150-450); RED BLOOD CELL COUNT(AUTO) 3.37 MIL/uL (4.5-6.0); RED CELL DISTRIBUTION WIDTH 16.7 % (11.5-15.0); WHITE BLOOD COUNT (AUTO) 14.9 K/uL (4.3-11.0)
[2023-02-08 07:29] LABS: CALCIUM, SERUM 8.4 mg/dL (8.5-10.1); CREATININE 1.1 mg/dL (0.6-1.3); MAGNESIUM 2.1 mg/dL (1.8-2.4); PHOSPHORUS 3.4 mg/dL (2.5-4.9); POTASSIUM 4.3 mmol/L (3.5-5.1)
[2023-02-08 08:00] VITALS: BP 87/52; TEMP 97.2; O2SAT 100
[2023-02-08] MEDS: PROSOURCE / PROSTAT (PYXIS) 30 ML UDC GT SCH ×2 (08:15→20:27)
[2023-02-08] MEDS: CEFEPIME 2 GM in IV D5W 100 ML IV SCH ×2 (08:16→20:28)
[2023-02-08] MEDS: ASCORBIC ACID 500 MG TABLET GT SCH (08:16)
[2023-02-08] MEDS: MULTIVIT W/MINERALS 1 TAB TABLET GT SCH (08:16)
[2023-02-08] MEDS: PANTOPRAZOLE 40 MG/PACK PACK GT SCH ×2 (08:16→20:28)
[2023-02-08] MEDS: FIDAXOMICIN 200 MG TABLET PO SCH ×2 (08:17→16:15)
[2023-02-08 10:18] LABS: LYMPHOCYTES % (MANUAL) 3 % (16-48); MONOCYTES % (MANUAL) 5 % (0-11.0); NEUTROPHILS % (MANUAL) 92 (42-76); PLATELET ESTIMATE DECREASED
[2023-02-08 10:19] LABS: ANISOCYTOSIS 1+; TEAR DROP CELLS OCC
[2023-02-08 12:00] VITALS: BP 85/60; TEMP 97.8; O2SAT 100
[2023-02-08] MEDS: MIDODRINE HCL (5MG) 5 MG TABLET PEG SCH ×2 (12:32→16:14)
[2023-02-08 16:00] VITALS: BP 98/62; TEMP 97.5; O2SAT 100
[2023-02-08 20:00] VITALS: BP 111/78; TEMP 97.7; O2SAT 96
[2023-02-08] MEDS: POLYETHYLENE GLYCOL 3350 17 GM POWD.PACK PO SCH (21:05)
[2023-02-09] VITALS (32 sets, daily range): BP systolic 83–126; BP diastolic 58–92; TEMP 96.7–97.7; O2SAT 94–100
[2023-02-09] MEDS: HYDROCORTISONE SOD SUCCINATE 100 MG/2 ML VIAL IV SCH ×3 (05:10→21:19)
[2023-02-09] MEDS: METOCLOPRAMIDE HCL 10 MG TABLET GT SCH ×3 (05:10→17:59)
[2023-02-09] MEDS: FLUDROCORTISONE 0.1 MG TABLET GT SCH ×3 (05:10→17:59)
[2023-02-09] MEDS: METRONIDAZOLE 500 MG TABLET PO SCH ×3 (05:11→18:00)
[2023-02-09] MEDS: VANCOMYCIN HCL 125 MG/2.5 ML ORAL.SUSP GT SCH ×3 (05:11→17:59)
[2023-02-09] MEDS: POLYVINYL ALCOHOL 15 ML BOTTLE EACHEYE SCH ×3 (05:11→17:59)
[2023-02-09 05:48] LABS: BASOPHILS % (AUTO) 0.2 % (0.0-2.0); EOSINOPHILS % (AUTO) 0.1 % (0.0-6.0); HEMATOCRIT 33 % (39-51); LYMPHOCYTES # (AUTO) 0.5 K/uL (0.8-4.8); MEAN CORPUSCULAR HEMOGLOBIN 29 PG (26.0-33.0); MEAN CORPUSCULAR HGB CONC 30 g/dl (31.0-36.0); MEAN CORPUSCULAR VOLUME 94 fL (80-96); MONOCYTES # (AUTO) 0.9 K/uL (0.1-1.30); MONOCYTES % (AUTO) 5.1 % (2.0-12.0); NEUTROPHILS # (AUTO) 15.7 K/uL (1.8-8.9); NEUTROPHILS % (AUTO) 91.6 % (43.0-81.0); PLATELET COUNT (AUTO) 81 K/uL (150-450); RED BLOOD CELL COUNT(AUTO) 3.52 MIL/uL (4.5-6.0); RED CELL DISTRIBUTION WIDTH 20.6 % (11.5-15.0); WHITE BLOOD COUNT (AUTO) 17.1 K/uL (4.3-11.0)
[2023-02-09 06:19] LABS: CALCIUM, SERUM 8.4 mg/dL (8.5-10.1); CREATININE 1.1 mg/dL (0.6-1.3); MAGNESIUM 2.2 mg/dL (1.8-2.4); PHOSPHORUS 3.1 mg/dL (2.5-4.9); POTASSIUM 4.1 mmol/L (3.5-5.1)
[2023-02-09 08:12] LABS: LYMPHOCYTES % (MANUAL) 3 % (16-48); MONOCYTES % (MANUAL) 7 % (0-11.0); NEUTROPHILS % (MANUAL) 90 (42-76)
[2023-02-09 08:13] LABS: ANISOCYTOSIS 2+; PLATELET ESTIMATE DECREASED
[2023-02-09] MEDS: MULTIVIT W/MINERALS 1 TAB TABLET GT SCH (08:24)
[2023-02-09] MEDS: ASCORBIC ACID 500 MG TABLET GT SCH (08:24)
[2023-02-09] MEDS: PANTOPRAZOLE 40 MG/PACK PACK GT SCH ×2 (08:25→21:19)
[2023-02-09] MEDS: MIDODRINE HCL (5MG) 5 MG TABLET PEG SCH ×3 (08:25→16:44)
[2023-02-09] MEDS: PROSOURCE / PROSTAT (PYXIS) 30 ML UDC GT SCH (08:25)
[2023-02-09] MEDS: CEFEPIME 2 GM in IV D5W 100 ML IV SCH ×2 (08:26→21:19)
[2023-02-09] MEDS ORDERED: IV D5W 1,000 ML IV PRN (09:00)
[2023-02-09] MEDS: ACETAMINOPHEN 650 MG/20.3 ML UDC GT PRN (13:16)
[2023-02-09] MEDS: VIT B CMPLX 3/FA/VIT C/BIOTIN 1 TAB TABLET PO SCH (14:56)
[2023-02-09 15:06] LABS: CALCIUM, SERUM 8.2 mg/dL (8.5-10.1); CREATININE 1.1 mg/dL (0.6-1.3); POTASSIUM 4.3 mmol/L (3.5-5.1)
[2023-02-09 15:12] LABS: BILIRUBIN,DIRECT 0.2 mg/dL (0.0-0.2); BILIRUBIN,TOTAL 0.4 mg/dL (0.2-1.0)
[2023-02-09 15:17] LABS: ALBUMIN 1.3 g/dL (3.4-5.0)
[2023-02-09] MEDS: DICYCLOMINE HCL 10 MG/5 ML UDC GT SCH ×2 (16:44→21:00)
[2023-02-09] MEDS ORDERED: NOREPINEPHRINE 8 MG in IV NS 0.9% 242 ML IV PRN (17:30)
[2023-02-09] MEDS ORDERED: IV NS 0.9% 250 ML IV PRN (18:00)
[2023-02-09] MEDS ORDERED: ALBUMIN 25% 12.5 GM in PREMIX 1 EA IV ONE (18:00)
[2023-02-09] MEDS ORDERED: ALBUMIN 25% 12.5 GM/50 ML BOTTLE IV ONE (18:00)
[2023-02-09] MEDS: NEPRO 1,000 ML BOTTLE GT PRN (18:50)
[2023-02-09] MEDS ORDERED: HYDROCORTISONE 20 MG TABLET PO SCH ×2 (21:00)
[2023-02-09] MEDS: POLYETHYLENE GLYCOL 3350 17 GM POWD.PACK PO SCH (21:45)
[2023-02-10] VITALS (89 sets, daily range): BP systolic 72–143; BP diastolic 49–89; TEMP 97.2–98.3; O2SAT 95–100
[2023-02-10] MEDS: METOCLOPRAMIDE HCL 10 MG TABLET GT SCH ×4 (00:05→17:24)
[2023-02-10] MEDS: VANCOMYCIN HCL 125 MG/2.5 ML ORAL.SUSP GT SCH ×4 (00:05→17:25)
[2023-02-10] MEDS: METRONIDAZOLE 500 MG TABLET PO SCH ×4 (00:05→17:24)
[2023-02-10] MEDS: POLYVINYL ALCOHOL 15 ML BOTTLE EACHEYE SCH ×4 (00:05→17:25)
[2023-02-10] MEDS: FLUDROCORTISONE 0.1 MG TABLET GT SCH ×4 (00:05→17:24)
[2023-02-10] MEDS: HYDROCORTISONE SOD SUCCINATE 100 MG/2 ML VIAL IV SCH ×2 (05:25→12:05)
[2023-02-10 05:40] LABS: BASOPHILS % (AUTO) 0.1 % (0.0-2.0); HEMATOCRIT 33 % (39-51); HEMOGLOBIN 9.9 g/dL (13.5-17.5); LYMPHOCYTES # (AUTO) 0.4 K/uL (0.8-4.8); LYMPHOCYTES % (AUTO) 2.5 % (20.0-44.0); MEAN CORPUSCULAR HEMOGLOBIN 29 PG (26.0-33.0); MEAN CORPUSCULAR HGB CONC 31 g/dl (31.0-36.0); MEAN CORPUSCULAR VOLUME 95 fL (80-96); MONOCYTES # (AUTO) 0.7 K/uL (0.1-1.30); MONOCYTES % (AUTO) 4.1 % (2.0-12.0); NEUTROPHILS # (AUTO) 15.3 K/uL (1.8-8.9); NEUTROPHILS % (AUTO) 93.3 % (43.0-81.0); PLATELET COUNT (AUTO) 84 K/uL (150-450); RED BLOOD CELL COUNT(AUTO) 3.44 MIL/uL (4.5-6.0); RED CELL DISTRIBUTION WIDTH 20.3 % (11.5-15.0); WHITE BLOOD COUNT (AUTO) 16.4 K/uL (4.3-11.0)
[2023-02-10 05:47] LABS: BILIRUBIN,TOTAL 0.4 mg/dL (0.2-1.0); CALCIUM, SERUM 8.7 mg/dL (8.5-10.1); CREATININE 1.1 mg/dL (0.6-1.3); MAGNESIUM 1.9 mg/dL (1.8-2.4); PHOSPHORUS 3.2 mg/dL (2.5-4.9); POTASSIUM 4.3 mmol/L (3.5-5.1); TOTAL PROTEIN, SERUM 4.4 g/dL (6.4-8.2)
[2023-02-10 05:50] LABS: ALBUMIN 1.4 g/dL (3.4-5.0)
[2023-02-10 06:19] LABS: ANISOCYTOSIS 1+; LYMPHOCYTES % (MANUAL) 6 % (16-48); NEUTROPHILS % (MANUAL) 94 (42-76); PLATELET ESTIMATE DECREASED
[2023-02-10] MEDS: MIDODRINE HCL (5MG) 5 MG TABLET PEG SCH ×3 (08:44→17:24)
[2023-02-10] MEDS: VIT B CMPLX 3/FA/VIT C/BIOTIN 1 TAB TABLET PO SCH (08:44)
[2023-02-10] MEDS: PANTOPRAZOLE 40 MG/PACK PACK GT SCH ×2 (08:44→21:46)
[2023-02-10] MEDS: DICYCLOMINE HCL 10 MG/5 ML UDC GT SCH ×4 (09:23→21:46)
[2023-02-10] MEDS: NOREPINEPHRINE 8 MG in IV NS 0.9% 242 ML IV PRN ×2 (10:02→20:44)
[2023-02-10] MEDS: NEPRO 1,000 ML BOTTLE GT PRN (18:52)
[2023-02-10] MEDS: methylPREDNISolone SOD SUCC 40 MG/ML VIAL IV SCH (21:45)
[2023-02-10] MEDS: POLYETHYLENE GLYCOL 3350 17 GM POWD.PACK PO SCH (21:45)
[2023-02-11] VITALS (99 sets, daily range): BP systolic 70–137; BP diastolic 31–91; TEMP 97.6–98.6; O2SAT 97–100
[2023-02-11] MEDS: POLYVINYL ALCOHOL 15 ML BOTTLE EACHEYE SCH ×5 (00:14→23:59)
[2023-02-11] MEDS: METRONIDAZOLE 500 MG TABLET PO SCH ×5 (00:14→23:59)
[2023-02-11] MEDS: METOCLOPRAMIDE HCL 10 MG TABLET GT SCH ×4 (00:15→17:06)
[2023-02-11] MEDS: FLUDROCORTISONE 0.1 MG TABLET GT SCH ×4 (00:19→17:06)
[2023-02-11] MEDS: VANCOMYCIN HCL 125 MG/2.5 ML ORAL.SUSP GT SCH ×5 (00:20→23:58)
[2023-02-11] MEDS ORDERED: NOREPINEPHRINE 8MG/250ML RTU 250 ML IV ONE (03:39)
[2023-02-11] MEDS: NOREPINEPHRINE 8 MG in IV NS 0.9% 242 ML IV PRN ×2 (03:44→14:31)
[2023-02-11] MEDS: methylPREDNISolone SOD SUCC 40 MG/ML VIAL IV SCH ×3 (05:10→21:04)
[2023-02-11 05:15] LABS: HEMATOCRIT 32 % (39-51); HEMOGLOBIN 9.9 g/dL (13.5-17.5); LYMPHOCYTES # (AUTO) 0.2 K/uL (0.8-4.8); LYMPHOCYTES % (AUTO) 1.8 % (20.0-44.0); MEAN CORPUSCULAR HEMOGLOBIN 29 PG (26.0-33.0); MEAN CORPUSCULAR HGB CONC 31 g/dl (31.0-36.0); MEAN CORPUSCULAR VOLUME 93 fL (80-96); MONOCYTES # (AUTO) 0.8 K/uL (0.1-1.30); MONOCYTES % (AUTO) 5.8 % (2.0-12.0); NEUTROPHILS # (AUTO) 12.8 K/uL (1.8-8.9); NEUTROPHILS % (AUTO) 92.4 % (43.0-81.0); PLATELET COUNT (AUTO) 86 K/uL (150-450); RED BLOOD CELL COUNT(AUTO) 3.43 MIL/uL (4.5-6.0); RED CELL DISTRIBUTION WIDTH 20.2 % (11.5-15.0); WHITE BLOOD COUNT (AUTO) 13.9 K/uL (4.3-11.0)
[2023-02-11 05:20] LABS: CALCIUM, SERUM 8.4 mg/dL (8.5-10.1); PHOSPHORUS 2.9 mg/dL (2.5-4.9); POTASSIUM 4.2 mmol/L (3.5-5.1)
[2023-02-11 05:45] LABS: ANISOCYTOSIS 1+; BAND % (MANUAL) 1 % (0.0-5.0); LYMPHOCYTES % (MANUAL) 1 % (16-48); MONOCYTES % (MANUAL) 6 % (0-11.0); NEUTROPHILS % (MANUAL) 92 (42-76); PLATELET ESTIMATE DECREASED
[2023-02-11] MEDS: PANTOPRAZOLE 40 MG/PACK PACK GT SCH ×2 (08:24→21:04)
[2023-02-11] MEDS: VIT B CMPLX 3/FA/VIT C/BIOTIN 1 TAB TABLET PO SCH (08:24)
[2023-02-11] MEDS: MIDODRINE HCL (5MG) 5 MG TABLET PEG SCH ×3 (08:24→16:55)
[2023-02-11] MEDS: DICYCLOMINE HCL 10 MG/5 ML UDC GT SCH ×4 (08:27→21:03)
[2023-02-11] MEDS: POLYETHYLENE GLYCOL 3350 17 GM POWD.PACK PO SCH (21:04)
[2023-02-11] MEDS: NEPRO 1,000 ML BOTTLE GT PRN (21:52)
[2023-02-12] VITALS (89 sets, daily range): BP systolic 82–130; BP diastolic 45–110; TEMP 97.6–97.8; O2SAT 94–100
[2023-02-12] MEDS: methylPREDNISolone SOD SUCC 40 MG/ML VIAL IV SCH (05:32)
[2023-02-12] MEDS: METRONIDAZOLE 500 MG TABLET PO SCH ×4 (05:32→23:13)
[2023-02-12] MEDS: VANCOMYCIN HCL 125 MG/2.5 ML ORAL.SUSP GT SCH ×4 (05:32→23:24)
[2023-02-12] MEDS: POLYVINYL ALCOHOL 15 ML BOTTLE EACHEYE SCH ×4 (05:33→23:14)
[2023-02-12] MEDS: METOCLOPRAMIDE HCL 10 MG TABLET GT SCH ×5 (05:33→23:13)
[2023-02-12] MEDS: FLUDROCORTISONE 0.1 MG TABLET GT SCH ×5 (05:33→23:23)
[2023-02-12] MEDS: NOREPINEPHRINE 8 MG in IV NS 0.9% 242 ML IV PRN (07:10)
[2023-02-12] MEDS: DICYCLOMINE HCL 10 MG/5 ML UDC GT SCH ×4 (08:09→21:12)
[2023-02-12] MEDS: MIDODRINE HCL (5MG) 5 MG TABLET PEG SCH ×4 (08:13→17:02)
[2023-02-12] MEDS: VIT B CMPLX 3/FA/VIT C/BIOTIN 1 TAB TABLET PO SCH (08:14)
[2023-02-12] MEDS: PANTOPRAZOLE 40 MG/PACK PACK GT SCH ×2 (08:14→21:09)
[2023-02-12] MEDS ORDERED: HYDROCORTISONE 20 MG TABLET PO SCH (10:00)
[2023-02-12] MEDS: MIDODRINE HCL (5MG) 5 MG TABLET PO SCH ×3 (11:06→17:03)
[2023-02-12] MEDS: MORPHINE SULFATE INJ 4 MG/ML DISP.SYRIN IV PRN (12:29)
[2023-02-12] MEDS: HYDROCORTISONE 20 MG TABLET PO SCH (13:24)
[2023-02-12] MEDS: NEPRO 1,000 ML BOTTLE GT PRN (15:52)
[2023-02-12 21:03] LABS: HEMOGLOBIN 8.6 g/dL (13.5-17.5)
[2023-02-12] MEDS: POLYETHYLENE GLYCOL 3350 17 GM POWD.PACK PO SCH (21:09)
[2023-02-13] VITALS (73 sets, daily range): BP systolic 35–119; BP diastolic 21–89; TEMP 97.8–99; O2SAT 90–100
[2023-02-13] MEDS: NOREPINEPHRINE 8 MG in IV NS 0.9% 242 ML IV PRN ×2 (03:29→13:03)
[2023-02-13 04:41] LABS: BASOPHILS % (AUTO) 0.1 % (0.0-2.0); EOSINOPHILS % (AUTO) 0.1 % (0.0-6.0); HEMATOCRIT 28 % (39-51); HEMOGLOBIN 8.7 g/dL (13.5-17.5); LYMPHOCYTES # (AUTO) 0.6 K/uL (0.8-4.8); LYMPHOCYTES % (AUTO) 4.9 % (20.0-44.0); MEAN CORPUSCULAR HEMOGLOBIN 29 PG (26.0-33.0); MEAN CORPUSCULAR HGB CONC 31 g/dl (31.0-36.0); MEAN CORPUSCULAR VOLUME 93 fL (80-96); MONOCYTES # (AUTO) 0.7 K/uL (0.1-1.30); MONOCYTES % (AUTO) 5.7 % (2.0-12.0); NEUTROPHILS # (AUTO) 10.9 K/uL (1.8-8.9); NEUTROPHILS % (AUTO) 89.2 % (43.0-81.0); PLATELET COUNT (AUTO) 51 K/uL (150-450); RED CELL DISTRIBUTION WIDTH 19.6 % (11.5-15.0); WHITE BLOOD COUNT (AUTO) 12.2 K/uL (4.3-11.0)
[2023-02-13 04:47] LABS: BILIRUBIN,TOTAL 0.5 mg/dL (0.2-1.0); CALCIUM, SERUM 8.2 mg/dL (8.5-10.1); CREATININE 0.9 mg/dL (0.6-1.3); MAGNESIUM 1.8 mg/dL (1.8-2.4); PHOSPHORUS 2.5 mg/dL (2.5-4.9); POTASSIUM 4.1 mmol/L (3.5-5.1)
[2023-02-13 05:02] LABS: ALBUMIN 1.4 g/dL (3.4-5.0)
[2023-02-13 05:43] LABS: LYMPHOCYTES % (MANUAL) 4 % (16-48); MONOCYTES % (MANUAL) 4 % (0-11.0); NEUTROPHILS % (MANUAL) 92 (42-76); PLATELET ESTIMATE DECREASED
[2023-02-13 05:44] LABS: ANISOCYTOSIS 2+
[2023-02-13] MEDS: METOCLOPRAMIDE HCL 10 MG TABLET GT SCH ×3 (06:00→17:48)
[2023-02-13] MEDS: METRONIDAZOLE 500 MG TABLET PO SCH ×3 (06:00→17:50)
[2023-02-13] MEDS: FLUDROCORTISONE 0.1 MG TABLET GT SCH ×3 (06:00→17:48)
[2023-02-13] MEDS: VANCOMYCIN HCL 125 MG/2.5 ML ORAL.SUSP GT SCH ×3 (06:01→18:14)
[2023-02-13] MEDS: POLYVINYL ALCOHOL 15 ML BOTTLE EACHEYE SCH ×3 (06:02→17:48)
[2023-02-13] MEDS: HYDROCORTISONE 20 MG TABLET PO SCH (08:25)
[2023-02-13] MEDS: VIT B CMPLX 3/FA/VIT C/BIOTIN 1 TAB TABLET PO SCH (08:25)
[2023-02-13] MEDS: PANTOPRAZOLE 40 MG/PACK PACK GT SCH ×2 (08:31→20:35)
[2023-02-13] MEDS: DICYCLOMINE HCL 10 MG/5 ML UDC GT SCH ×4 (08:35→20:35)
[2023-02-13] MEDS: MIDODRINE HCL (5MG) 5 MG TABLET PO SCH ×3 (09:50→17:48)
[2023-02-13] MEDS ORDERED: FUROSEMIDE 20 MG/2 ML VIAL IV ONE (16:00)
[2023-02-13] MEDS: NEPRO 1,000 ML BOTTLE GT PRN (21:00)
[2023-02-13] MEDS: NOREPINEPHRINE 32 MG in IV NS 0.9% 250 ML IV PRN (21:03)
[2023-02-13] MEDS: POLYETHYLENE GLYCOL 3350 17 GM POWD.PACK PO SCH (21:04)
[2023-02-14] VITALS (79 sets, daily range): BP systolic 68–124; BP diastolic 48–79; TEMP 97.6–98.9; O2SAT 94–100
[2023-02-14] MEDS: METRONIDAZOLE 500 MG TABLET PO SCH ×4 (01:54→17:03)
[2023-02-14] MEDS: METOCLOPRAMIDE HCL 10 MG TABLET GT SCH ×5 (01:54→23:21)
[2023-02-14] MEDS: VANCOMYCIN HCL 125 MG/2.5 ML ORAL.SUSP GT SCH ×4 (01:55→17:03)
[2023-02-14] MEDS: FLUDROCORTISONE 0.1 MG TABLET GT SCH ×5 (01:56→23:21)
[2023-02-14] MEDS: POLYVINYL ALCOHOL 15 ML BOTTLE EACHEYE SCH ×5 (01:57→23:21)
[2023-02-14] MEDS: DICYCLOMINE HCL 10 MG/5 ML UDC GT SCH ×4 (08:35→21:20)
[2023-02-14] MEDS: PANTOPRAZOLE 40 MG/PACK PACK GT SCH ×2 (08:35→21:20)
[2023-02-14] MEDS: MIDODRINE HCL (5MG) 5 MG TABLET PO SCH ×3 (08:35→17:04)
[2023-02-14] MEDS: HYDROCORTISONE 20 MG TABLET PO SCH (08:35)
[2023-02-14] MEDS: VIT B CMPLX 3/FA/VIT C/BIOTIN 1 TAB TABLET PO SCH (08:35)
[2023-02-14] MEDS: FLUCONAZOLE (100 MG) 100 MG TABLET PO SCH (12:22)
[2023-02-14] MEDS: NOREPINEPHRINE 32 MG in IV NS 0.9% 250 ML IV PRN (17:48)
[2023-02-14] MEDS: POLYETHYLENE GLYCOL 3350 17 GM POWD.PACK PO SCH (21:20)
[2023-02-14] MEDS ORDERED: ALBUMIN 25% 50 ML IV ONE (21:25)
[2023-02-14] MEDS: NEPRO 1,000 ML BOTTLE GT PRN (22:45)
[2023-02-15] VITALS (90 sets, daily range): BP systolic 84–151; BP diastolic 55–95; TEMP 97.8–98.3; O2SAT 98–100
[2023-02-15 05:38] LABS: BASOPHILS % (AUTO) 0.1 % (0.0-2.0); EOSINOPHILS % (AUTO) 0.1 % (0.0-6.0); HEMATOCRIT 26 % (39-51); LYMPHOCYTES # (AUTO) 0.3 K/uL (0.8-4.8); MEAN CORPUSCULAR HEMOGLOBIN 29 PG (26.0-33.0); MEAN CORPUSCULAR HGB CONC 31 g/dl (31.0-36.0); MEAN CORPUSCULAR VOLUME 93 fL (80-96); MONOCYTES # (AUTO) 0.9 K/uL (0.1-1.30); MONOCYTES % (AUTO) 8.2 % (2.0-12.0); NEUTROPHILS # (AUTO) 9.9 K/uL (1.8-8.9); NEUTROPHILS % (AUTO) 88.6 % (43.0-81.0); RED BLOOD CELL COUNT(AUTO) 2.79 MIL/uL (4.5-6.0); RED CELL DISTRIBUTION WIDTH 20.6 % (11.5-15.0); WHITE BLOOD COUNT (AUTO) 11.2 K/uL (4.3-11.0)
[2023-02-15 05:40] LABS: CALCIUM, SERUM 8.5 mg/dL (8.5-10.1); CREATININE 0.9 mg/dL (0.6-1.3); MAGNESIUM 1.8 mg/dL (1.8-2.4); PHOSPHORUS 3.1 mg/dL (2.5-4.9); POTASSIUM 3.7 mmol/L (3.5-5.1)
[2023-02-15 05:41] LABS: PLATELET COUNT (AUTO) 44 K/uL (150-450)
[2023-02-15] MEDS: POLYVINYL ALCOHOL 15 ML BOTTLE EACHEYE SCH ×4 (06:25→23:26)
[2023-02-15] MEDS: METOCLOPRAMIDE HCL 10 MG TABLET GT SCH ×4 (06:25→23:25)
[2023-02-15] MEDS: FLUDROCORTISONE 0.1 MG TABLET GT SCH ×4 (06:25→23:25)
[2023-02-15] MEDS: NOREPINEPHRINE 32 MG in IV NS 0.9% 250 ML IV PRN (07:05)
[2023-02-15 08:47] LABS: LYMPHOCYTES % (MANUAL) 7 % (16-48); MONOCYTES % (MANUAL) 8 % (0-11.0); NEUTROPHILS % (MANUAL) 85 (42-76); PLATELET ESTIMATE DECREASED
[2023-02-15 08:56] LABS: ANISOCYTOSIS 1+
[2023-02-15] MEDS: VIT B CMPLX 3/FA/VIT C/BIOTIN 1 TAB TABLET PO SCH (09:11)
[2023-02-15] MEDS: PANTOPRAZOLE 40 MG/PACK PACK GT SCH ×2 (09:11→21:28)
[2023-02-15] MEDS: FLUCONAZOLE (100 MG) 100 MG TABLET PO SCH (09:12)
[2023-02-15] MEDS: DICYCLOMINE HCL 10 MG/5 ML UDC GT SCH ×4 (09:12→21:28)
[2023-02-15] MEDS: VANCOMYCIN HCL 125 MG/2.5 ML ORAL.SUSP GT SCH ×2 (09:12→17:19)
[2023-02-15] MEDS: HYDROCORTISONE 20 MG TABLET PO SCH (09:12)
[2023-02-15] MEDS: MIDODRINE HCL (5MG) 5 MG TABLET PO SCH ×3 (09:13→17:21)
[2023-02-15] MEDS: methylPREDNISolone SOD SUCC 40 MG/ML VIAL IV SCH ×2 (10:16→17:22)
[2023-02-15] MEDS ORDERED: BUMETANIDE INJ 4 MG in IV NS 0.9% 24 ML IV ONE (14:00)
[2023-02-15] MEDS: POLYETHYLENE GLYCOL 3350 17 GM POWD.PACK PO SCH (21:28)
[2023-02-15] MEDS: NEPRO 1,000 ML BOTTLE GT PRN (23:35)
[2023-02-16] VITALS (100 sets, daily range): BP systolic 77–173; BP diastolic 37–107; TEMP 97.6–98.3; O2SAT 94–100
[2023-02-16] MEDS: methylPREDNISolone SOD SUCC 40 MG/ML VIAL IV SCH ×3 (01:13→17:05)
[2023-02-16] MEDS: MORPHINE SULFATE INJ 4 MG/ML DISP.SYRIN IV PRN (03:41)
[2023-02-16] MEDS: FLUDROCORTISONE 0.1 MG TABLET GT SCH ×3 (05:27→17:05)
[2023-02-16] MEDS: METOCLOPRAMIDE HCL 10 MG TABLET GT SCH ×3 (05:27→17:05)
[2023-02-16] MEDS: POLYVINYL ALCOHOL 15 ML BOTTLE EACHEYE SCH ×3 (05:28→17:06)
[2023-02-16 06:03] LABS: CALCIUM, SERUM 8.1 mg/dL (8.5-10.1); CREATININE 0.9 mg/dL (0.6-1.3); EOSINOPHILS % (AUTO) 0.1 % (0.0-6.0); HEMATOCRIT 24 % (39-51); HEMOGLOBIN 7.5 g/dL (13.5-17.5); LYMPHOCYTES # (AUTO) 0.1 K/uL (0.8-4.8); LYMPHOCYTES % (AUTO) 2.2 % (20.0-44.0); MAGNESIUM 1.7 mg/dL (1.8-2.4); MEAN CORPUSCULAR HEMOGLOBIN 29 PG (26.0-33.0); MEAN CORPUSCULAR HGB CONC 32 g/dl (31.0-36.0); MEAN CORPUSCULAR VOLUME 93 fL (80-96); MONOCYTES # (AUTO) 0.2 K/uL (0.1-1.30); MONOCYTES % (AUTO) 3.1 % (2.0-12.0); NEUTROPHILS # (AUTO) 5.5 K/uL (1.8-8.9); NEUTROPHILS % (AUTO) 94.6 % (43.0-81.0); PHOSPHORUS 3.2 mg/dL (2.5-4.9); POTASSIUM 3.8 mmol/L (3.5-5.1); RED BLOOD CELL COUNT(AUTO) 2.55 MIL/uL (4.5-6.0); RED CELL DISTRIBUTION WIDTH 21.3 % (11.5-15.0); WHITE BLOOD COUNT (AUTO) 5.9 K/uL (4.3-11.0)
[2023-02-16 06:07] LABS: PLATELET COUNT (AUTO) 35 K/uL (150-450)
[2023-02-16 07:23] LABS: LYMPHOCYTES % (MANUAL) 1 % (16-48); MONOCYTES % (MANUAL) 2 % (0-11.0); NEUTROPHILS % (MANUAL) 97 (42-76); PLATELET ESTIMATE DECREASED
[2023-02-16] MEDS ORDERED: BUMETANIDE INJ 6 MG in IV NS 0.9% 36 ML IV ONE (08:00)
[2023-02-16] MEDS: NOREPINEPHRINE 8 MG in IV NS 0.9% 250ML IV PRN (08:25)
[2023-02-16] MEDS: DICYCLOMINE HCL 10 MG/5 ML UDC GT SCH ×4 (08:26→21:27)
[2023-02-16] MEDS: PANTOPRAZOLE 40 MG/PACK PACK GT SCH ×2 (08:26→21:27)
[2023-02-16] MEDS: VANCOMYCIN HCL 125 MG/2.5 ML ORAL.SUSP GT SCH ×2 (08:26→17:04)
[2023-02-16] MEDS: VIT B CMPLX 3/FA/VIT C/BIOTIN 1 TAB TABLET PO SCH (08:27)
[2023-02-16] MEDS: HYDROCORTISONE 20 MG TABLET PO SCH (08:27)
[2023-02-16] MEDS: FLUCONAZOLE (100 MG) 100 MG TABLET PO SCH (08:28)
[2023-02-16] MEDS: MIDODRINE HCL (5MG) 5 MG TABLET PO SCH ×3 (08:28→17:05)
[2023-02-16] MEDS: METOLAZONE 2.5 MG TABLET GT SCH (08:29)
[2023-02-16] MEDS ORDERED: MAGNESIUM OXIDE 400 MG TABLET GT ONE (11:00)
[2023-02-16] MEDS: POLYETHYLENE GLYCOL 3350 17 GM POWD.PACK PO SCH (21:27)
[2023-02-17] VITALS (104 sets, daily range): BP systolic 52–127; BP diastolic 35–88; TEMP 97.5–98; O2SAT 91–100
[2023-02-17] MEDS: FLUDROCORTISONE 0.1 MG TABLET GT SCH ×5 (00:33→23:50)
[2023-02-17] MEDS: METOCLOPRAMIDE HCL 10 MG TABLET GT SCH ×5 (00:33→23:50)
[2023-02-17] MEDS: POLYVINYL ALCOHOL 15 ML BOTTLE EACHEYE SCH ×5 (00:34→23:50)
[2023-02-17] MEDS: methylPREDNISolone SOD SUCC 40 MG/ML VIAL IV SCH ×3 (01:51→17:29)
[2023-02-17] MEDS: NEPRO 1,000 ML BOTTLE GT PRN (05:16)
[2023-02-17] MEDS: NOREPINEPHRINE 8 MG in IV NS 0.9% 250ML IV PRN (05:35)
[2023-02-17 05:40] LABS: HEMATOCRIT 26 % (39-51); HEMOGLOBIN 8.2 g/dL (13.5-17.5); LYMPHOCYTES # (AUTO) 0.2 K/uL (0.8-4.8); LYMPHOCYTES % (AUTO) 3.6 % (20.0-44.0); MEAN CORPUSCULAR HEMOGLOBIN 29 PG (26.0-33.0); MEAN CORPUSCULAR HGB CONC 31 g/dl (31.0-36.0); MEAN CORPUSCULAR VOLUME 93 fL (80-96); MONOCYTES # (AUTO) 0.2 K/uL (0.1-1.30); MONOCYTES % (AUTO) 3.7 % (2.0-12.0); NEUTROPHILS # (AUTO) 5.6 K/uL (1.8-8.9); NEUTROPHILS % (AUTO) 92.7 % (43.0-81.0); PLATELET COUNT (AUTO) 54 K/uL (150-450); RED BLOOD CELL COUNT(AUTO) 2.82 MIL/uL (4.5-6.0); RED CELL DISTRIBUTION WIDTH 21.5 % (11.5-15.0)
[2023-02-17 05:50] LABS: INR 1.1 (0.91-1.10); PROTHROMBIN TIME 11.6 SECS (9.2-11.1)
[2023-02-17] MEDS ORDERED: FLUDROCORTISONE 0.1 MG TABLET ONE (06:27)
[2023-02-17] MEDS: FLUCONAZOLE (100 MG) 100 MG TABLET PO SCH (08:24)
[2023-02-17] MEDS: VIT B CMPLX 3/FA/VIT C/BIOTIN 1 TAB TABLET PO SCH (08:24)
[2023-02-17] MEDS: PANTOPRAZOLE 40 MG/PACK PACK GT SCH ×2 (08:24→21:38)
[2023-02-17] MEDS: VANCOMYCIN HCL 125 MG/2.5 ML ORAL.SUSP GT SCH ×2 (08:24→17:28)
[2023-02-17] MEDS: MIDODRINE HCL (5MG) 5 MG TABLET PO SCH ×3 (08:24→17:29)
[2023-02-17] MEDS: METOLAZONE 2.5 MG TABLET GT SCH (08:24)
[2023-02-17] MEDS: DICYCLOMINE HCL 10 MG/5 ML UDC GT SCH ×4 (08:24→21:38)
[2023-02-17 09:24] LABS: ANISOCYTOSIS 1+; LYMPHOCYTES % (MANUAL) 2 % (16-48); MONOCYTES % (MANUAL) 6 % (0-11.0); NEUTROPHILS % (MANUAL) 92 (42-76); PLATELET ESTIMATE DECREASED
[2023-02-17] MEDS ORDERED: BUMETANIDE INJ 6 MG in IV NS 0.9% 36 ML IV ONE (14:00)
[2023-02-17] MEDS: POLYETHYLENE GLYCOL 3350 17 GM POWD.PACK PO SCH (21:38)
[2023-02-18] VITALS (92 sets, daily range): BP systolic 70–120; BP diastolic 6–94; TEMP 96.8–97.9; O2SAT 92–100
[2023-02-18] MEDS: MORPHINE SULFATE INJ 4 MG/ML DISP.SYRIN IV PRN ×2 (00:11→06:49)
[2023-02-18] MEDS: methylPREDNISolone SOD SUCC 40 MG/ML VIAL IV SCH ×3 (02:03→17:05)
[2023-02-18 04:19] LABS: HEMATOCRIT 27 % (39-51); HEMOGLOBIN 8.6 g/dL (13.5-17.5); LYMPHOCYTES # (AUTO) 0.2 K/uL (0.8-4.8); MEAN CORPUSCULAR HEMOGLOBIN 29 PG (26.0-33.0); MEAN CORPUSCULAR HGB CONC 32 g/dl (31.0-36.0); MEAN CORPUSCULAR VOLUME 92 fL (80-96); MONOCYTES # (AUTO) 0.4 K/uL (0.1-1.30); MONOCYTES % (AUTO) 5.3 % (2.0-12.0); NEUTROPHILS # (AUTO) 7.2 K/uL (1.8-8.9); NEUTROPHILS % (AUTO) 91.7 % (43.0-81.0); PLATELET COUNT (AUTO) 64 K/uL (150-450); RED BLOOD CELL COUNT(AUTO) 2.94 MIL/uL (4.5-6.0); RED CELL DISTRIBUTION WIDTH 20.9 % (11.5-15.0); WHITE BLOOD COUNT (AUTO) 7.8 K/uL (4.3-11.0)
[2023-02-18] MEDS: NOREPINEPHRINE 8 MG in IV NS 0.9% 250ML IV PRN (04:53)
[2023-02-18 04:58] LABS: BAND % (MANUAL) 1 % (0.0-5.0); LYMPHOCYTES % (MANUAL) 4 % (16-48); MONOCYTES % (MANUAL) 5 % (0-11.0); NEUTROPHILS % (MANUAL) 90 (42-76)
[2023-02-18 04:59] LABS: ANISOCYTOSIS 1+; BILIRUBIN,TOTAL 0.3 mg/dL (0.2-1.0); CREATININE 1.2 mg/dL (0.6-1.3); TOTAL PROTEIN, SERUM 4.3 g/dL (6.4-8.2)
[2023-02-18 05:01] LABS: PLATELET ESTIMATE DECREASED
[2023-02-18 05:09] LABS: ALBUMIN 1.4 g/dL (3.4-5.0); POTASSIUM 2.5 mmol/L (3.5-5.1)
[2023-02-18] MEDS: METOCLOPRAMIDE HCL 10 MG TABLET GT SCH ×3 (05:33→17:05)
[2023-02-18] MEDS: POLYVINYL ALCOHOL 15 ML BOTTLE EACHEYE SCH ×3 (05:34→17:04)
[2023-02-18] MEDS: FLUDROCORTISONE 0.1 MG TABLET GT SCH ×3 (05:34→17:05)
[2023-02-18] MEDS: NEPRO 1,000 ML BOTTLE GT PRN (06:27)
[2023-02-18] MEDS: POTASSIUM CHLORIDE 20 MEQ POWDER PACKET GT SCH ×2 (06:31→16:54)
[2023-02-18] MEDS ORDERED: POTASSIUM CHLORIDE 10 MEQ/50 ML PREMIXED IVPB FOR PERIPHERAL LINE IV ONE (08:00)
[2023-02-18] MEDS: VIT B CMPLX 3/FA/VIT C/BIOTIN 1 TAB TABLET PO SCH (08:09)
[2023-02-18] MEDS: PANTOPRAZOLE 40 MG/PACK PACK GT SCH ×2 (08:09→21:09)
[2023-02-18] MEDS: METOLAZONE 2.5 MG TABLET GT SCH (08:09)
[2023-02-18] MEDS: FLUCONAZOLE (100 MG) 100 MG TABLET PO SCH (08:09)
[2023-02-18] MEDS: DICYCLOMINE HCL 10 MG/5 ML UDC GT SCH ×4 (08:10→21:09)
[2023-02-18] MEDS: VANCOMYCIN HCL 125 MG/2.5 ML ORAL.SUSP GT SCH ×2 (08:10→16:54)
[2023-02-18] MEDS: MIDODRINE HCL (5MG) 5 MG TABLET PO SCH ×3 (08:12→17:07)
[2023-02-18] MEDS ORDERED: POTASSIUM CHLORIDE 20 MEQ POWDER PACKET NG SCH (09:30)
[2023-02-18] MEDS: POLYETHYLENE GLYCOL 3350 17 GM POWD.PACK PO SCH (21:09)
[2023-02-19] VITALS (98 sets, daily range): BP systolic 61–137; BP diastolic 38–85; TEMP 97.5–98.8; O2SAT 92–100
[2023-02-19] MEDS: METOCLOPRAMIDE HCL 10 MG TABLET GT SCH ×5 (00:13→23:03)
[2023-02-19] MEDS: POLYVINYL ALCOHOL 15 ML BOTTLE EACHEYE SCH ×5 (00:14→23:04)
[2023-02-19] MEDS: FLUDROCORTISONE 0.1 MG TABLET GT SCH ×5 (00:14→23:03)
[2023-02-19] MEDS: methylPREDNISolone SOD SUCC 40 MG/ML VIAL IV SCH ×3 (01:29→18:02)
[2023-02-19] MEDS: NEPRO 1,000 ML BOTTLE GT PRN (05:55)
[2023-02-19] MEDS ORDERED: BUMETANIDE INJ 6 MG in IV NS 0.9% 36 ML IV ONE (08:00)
[2023-02-19 08:01] LABS: BASOPHILS % (AUTO) 0.1 % (0.0-2.0); HEMATOCRIT 28 % (39-51); HEMOGLOBIN 8.8 g/dL (13.5-17.5); LYMPHOCYTES # (AUTO) 0.2 K/uL (0.8-4.8); LYMPHOCYTES % (AUTO) 1.9 % (20.0-44.0); MEAN CORPUSCULAR HEMOGLOBIN 30 PG (26.0-33.0); MEAN CORPUSCULAR HGB CONC 32 g/dl (31.0-36.0); MEAN CORPUSCULAR VOLUME 92 fL (80-96); MONOCYTES # (AUTO) 0.6 K/uL (0.1-1.30); MONOCYTES % (AUTO) 5.6 % (2.0-12.0); NEUTROPHILS # (AUTO) 9.3 K/uL (1.8-8.9); NEUTROPHILS % (AUTO) 92.4 % (43.0-81.0); PLATELET COUNT (AUTO) 70 K/uL (150-450); RED CELL DISTRIBUTION WIDTH 20.8 % (11.5-15.0)
[2023-02-19 08:11] LABS: CALCIUM, SERUM 8.2 mg/dL (8.5-10.1); CREATININE 1.1 mg/dL (0.6-1.3)
[2023-02-19 08:22] LABS: POTASSIUM 2.6 mmol/L (3.5-5.1)
[2023-02-19] MEDS: POTASSIUM CHLORIDE 20 MEQ POWDER PACKET GT SCH ×2 (09:13→17:42)
[2023-02-19] MEDS: FLUCONAZOLE (100 MG) 100 MG TABLET PO SCH (09:13)
[2023-02-19] MEDS: METOLAZONE 2.5 MG TABLET GT SCH (09:13)
[2023-02-19] MEDS: PANTOPRAZOLE 40 MG/PACK PACK GT SCH ×2 (09:13→21:11)
[2023-02-19] MEDS: VIT B CMPLX 3/FA/VIT C/BIOTIN 1 TAB TABLET PO SCH (09:13)
[2023-02-19] MEDS: MIDODRINE HCL (5MG) 5 MG TABLET PO SCH ×3 (09:19→17:42)
[2023-02-19] MEDS: VANCOMYCIN HCL 125 MG/2.5 ML ORAL.SUSP GT SCH ×2 (09:20→17:43)
[2023-02-19] MEDS: DICYCLOMINE HCL 10 MG/5 ML UDC GT SCH ×4 (09:20→21:11)
[2023-02-19] MEDS ORDERED: POTASSIUM CHLORIDE 20 MEQ POWDER PACKET NG SCH ×2 (09:30→10:00)
[2023-02-19] MEDS: NOREPINEPHRINE 8 MG in IV NS 0.9% 250ML IV PRN ×2 (11:59→23:00)
[2023-02-19 12:14] LABS: LYMPHOCYTES % (MANUAL) 2 % (16-48); MONOCYTES % (MANUAL) 6 % (0-11.0); NEUTROPHILS % (MANUAL) 92 (42-76)
[2023-02-19 12:17] LABS: PLATELET ESTIMATE DECREASED
[2023-02-19] MEDS: POLYETHYLENE GLYCOL 3350 17 GM POWD.PACK PO SCH (21:08)
[2023-02-20] VITALS (101 sets, daily range): BP systolic 61–134; BP diastolic 13–109; TEMP 97.9–98.3; O2SAT 92–100
[2023-02-20] MEDS: methylPREDNISolone SOD SUCC 40 MG/ML VIAL IV SCH ×3 (02:15→17:10)
[2023-02-20 04:23] LABS: HEMATOCRIT 27 % (39-51); HEMOGLOBIN 8.5 g/dL (13.5-17.5); LYMPHOCYTES # (AUTO) 0.2 K/uL (0.8-4.8); LYMPHOCYTES % (AUTO) 1.4 % (20.0-44.0); MEAN CORPUSCULAR HEMOGLOBIN 29 PG (26.0-33.0); MEAN CORPUSCULAR HGB CONC 31 g/dl (31.0-36.0); MEAN CORPUSCULAR VOLUME 93 fL (80-96); MONOCYTES # (AUTO) 0.4 K/uL (0.1-1.30); MONOCYTES % (AUTO) 3.3 % (2.0-12.0); NEUTROPHILS # (AUTO) 11.4 K/uL (1.8-8.9); NEUTROPHILS % (AUTO) 95.3 % (43.0-81.0); PLATELET COUNT (AUTO) 76 K/uL (150-450); RED BLOOD CELL COUNT(AUTO) 2.93 MIL/uL (4.5-6.0)
[2023-02-20 04:52] LABS: CALCIUM, SERUM 8.6 mg/dL (8.5-10.1); CREATININE 1.1 mg/dL (0.6-1.3); MAGNESIUM 1.9 mg/dL (1.8-2.4); POTASSIUM 3.6 mmol/L (3.5-5.1)
[2023-02-20] MEDS ORDERED: FLUDROCORTISONE 0.1 MG TABLET ONE (06:13)
[2023-02-20] MEDS: FLUDROCORTISONE 0.1 MG TABLET GT SCH ×3 (06:16→17:11)
[2023-02-20] MEDS: POLYVINYL ALCOHOL 15 ML BOTTLE EACHEYE SCH ×3 (06:16→17:12)
[2023-02-20] MEDS: NEPRO 1,000 ML BOTTLE GT PRN (06:17)
[2023-02-20] MEDS: METOCLOPRAMIDE HCL 10 MG TABLET GT SCH ×3 (06:18→17:13)
[2023-02-20 06:24] LABS: ANISOCYTOSIS 1+; BAND % (MANUAL) 1 % (0.0-5.0); LYMPHOCYTES % (MANUAL) 1 % (16-48); MONOCYTES % (MANUAL) 1 % (0-11.0); NEUTROPHILS % (MANUAL) 97 (42-76); PLATELET ESTIMATE DECREASED; STOMATOCYTES 1+
[2023-02-20] MEDS: PANTOPRAZOLE 40 MG/PACK PACK GT SCH ×2 (09:02→22:21)
[2023-02-20] MEDS: VIT B CMPLX 3/FA/VIT C/BIOTIN 1 TAB TABLET PO SCH (09:03)
[2023-02-20] MEDS: FLUCONAZOLE (100 MG) 100 MG TABLET PO SCH (09:03)
[2023-02-20] MEDS: METOLAZONE 2.5 MG TABLET GT SCH (09:03)
[2023-02-20] MEDS: MIDODRINE HCL (5MG) 5 MG TABLET PO SCH ×3 (09:07→17:12)
[2023-02-20] MEDS: VANCOMYCIN HCL 125 MG/2.5 ML ORAL.SUSP GT SCH ×2 (09:08→17:15)
[2023-02-20] MEDS: DICYCLOMINE HCL 10 MG/5 ML UDC GT SCH ×4 (09:08→22:21)
[2023-02-20] MEDS: ALBUMIN 25% 12.5 GM in PREMIX 1 EA IV SCH ×3 (10:50→21:00)
[2023-02-20] MEDS: NOREPINEPHRINE 8 MG in IV NS 0.9% 250ML IV PRN (12:42)
[2023-02-20] MEDS: POLYETHYLENE GLYCOL 3350 17 GM POWD.PACK PO SCH ×2 (22:00→22:39)
[2023-02-21] VITALS (75 sets, daily range): BP systolic 56–121; BP diastolic 46–103; TEMP 97.6–99.1; O2SAT 93–100
[2023-02-21] MEDS: methylPREDNISolone SOD SUCC 40 MG/ML VIAL IV SCH ×3 (02:30→17:34)
[2023-02-21] MEDS: NOREPINEPHRINE 8 MG in IV NS 0.9% 250ML IV PRN ×2 (02:41→02:46)
[2023-02-21 05:01] LABS: BASOPHILS % (AUTO) 0.1 % (0.0-2.0); HEMATOCRIT 23 % (39-51); HEMOGLOBIN 7.4 g/dL (13.5-17.5); LYMPHOCYTES # (AUTO) 0.2 K/uL (0.8-4.8); LYMPHOCYTES % (AUTO) 1.5 % (20.0-44.0); MEAN CORPUSCULAR HEMOGLOBIN 29 PG (26.0-33.0); MEAN CORPUSCULAR HGB CONC 32 g/dl (31.0-36.0); MEAN CORPUSCULAR VOLUME 92 fL (80-96); MONOCYTES # (AUTO) 0.2 K/uL (0.1-1.30); MONOCYTES % (AUTO) 1.6 % (2.0-12.0); NEUTROPHILS # (AUTO) 10.1 K/uL (1.8-8.9); NEUTROPHILS % (AUTO) 96.8 % (43.0-81.0); PLATELET COUNT (AUTO) 61 K/uL (150-450); RED BLOOD CELL COUNT(AUTO) 2.54 MIL/uL (4.5-6.0); RED CELL DISTRIBUTION WIDTH 20.5 % (11.5-15.0); WHITE BLOOD COUNT (AUTO) 10.5 K/uL (4.3-11.0)
[2023-02-21 05:29] LABS: ALBUMIN 2.1 g/dL (3.4-5.0); BILIRUBIN,TOTAL 0.4 mg/dL (0.2-1.0); CALCIUM, SERUM 8.5 mg/dL (8.5-10.1); TOTAL PROTEIN, SERUM 4.6 g/dL (6.4-8.2)
[2023-02-21 05:41] LABS: POTASSIUM 2.5 mmol/L (3.5-5.1)
[2023-02-21] MEDS: ALBUMIN 25% 12.5 GM in PREMIX 1 EA IV SCH ×2 (05:55→12:18)
[2023-02-21] MEDS: METOCLOPRAMIDE HCL 10 MG TABLET GT SCH ×4 (06:00→17:34)
[2023-02-21] MEDS: POLYVINYL ALCOHOL 15 ML BOTTLE EACHEYE SCH ×4 (06:12→18:20)
[2023-02-21] MEDS: FLUDROCORTISONE 0.1 MG TABLET GT SCH ×4 (06:17→17:34)
[2023-02-21] MEDS: POTASSIUM CL. PREMIX PERIPHER. 50 ML IV SCH ×5 (06:43→11:55)
[2023-02-21] MEDS: NEPRO 1,000 ML BOTTLE GT PRN (07:51)
[2023-02-21 08:23] LABS: BAND % (MANUAL) 2 % (0.0-5.0); LYMPHOCYTES % (MANUAL) 1 % (16-48); NEUTROPHILS % (MANUAL) 97 (42-76)
[2023-02-21 08:24] LABS: ANISOCYTOSIS 1+; PLATELET ESTIMATE DECREASED
[2023-02-21] MEDS ORDERED: NOREPINEPHRINE 8 MG in IV NS 0.9% 242 ML IV PRN ×2 (09:00→11:00)
[2023-02-21] MEDS: DICYCLOMINE HCL 10 MG/5 ML UDC GT SCH ×3 (09:07→17:34)
[2023-02-21] MEDS: PANTOPRAZOLE 40 MG/PACK PACK GT SCH (09:08)
[2023-02-21] MEDS: METOLAZONE 2.5 MG TABLET GT SCH (09:08)
[2023-02-21] MEDS: VIT B CMPLX 3/FA/VIT C/BIOTIN 1 TAB TABLET PO SCH (09:08)
[2023-02-21] MEDS: FLUCONAZOLE (100 MG) 100 MG TABLET PO SCH (09:08)
[2023-02-21] MEDS: MIDODRINE HCL (5MG) 5 MG TABLET PO SCH ×3 (09:11→17:34)
[2023-02-21] MEDS: POTASSIUM CHLORIDE 20 MEQ POWDER PACKET NG SCH ×5 (09:50→13:16)
[2023-02-21] MEDS: VANCOMYCIN HCL 125 MG/2.5 ML ORAL.SUSP GT SCH ×2 (10:54→17:34)
[2023-02-21] MEDS: MORPHINE SULFATE INJ 4 MG/ML DISP.SYRIN IV PRN ×2 (15:05→17:34)
[2023-02-21] MEDS: ACETAMINOPHEN 650 MG/20.3 ML UDC GT PRN (17:33)
== END 2023-02-21 20:55 | DRG 870 ==
LOC: ER 15:34 → TELE1 18:47 → ICU 19:21 → TELE-TD 02-07 15:18 → TELE1 02-08 08:09 → ICU 02-09 17:05
PROVIDERS: ADMIT Nurse Practitioner Acute Care; ATTEND Nurse Practitioner Acute Care
PROC: 5A1955Z Respiratory Ventilation, Greater than 96 Consecutive Hours (ICD-10-PCS; principal; 2023-01-24)
PROC: 02HV33Z Insertion of Infusion Device into Superior Vena Cava, Percutaneous Approach (ICD-10-PCS; 2023-01-25)
PROC: B548ZZA Ultrasonography of Superior Vena Cava, Guidance (ICD-10-PCS; 2023-01-25)
PROC: 05H533Z Insertion of Infusion Device into Right Subclavian Vein, Percutaneous Approach (ICD-10-PCS; 2023-02-07)
PROC: B546ZZA Ultrasonography of Right Subclavian Vein, Guidance (ICD-10-PCS; 2023-02-07)
PROC: 02HV33Z Insertion of Infusion Device into Superior Vena Cava, Percutaneous Approach (ICD-10-PCS; 2023-02-10)
PROC: B548ZZA Ultrasonography of Superior Vena Cava, Guidance (ICD-10-PCS; 2023-02-10)
DX: A41.9 Sepsis, unspecified organism (principal); G93.41 Metabolic encephalopathy; J69.0 Pneumonitis due to inhalation of food and vomit; J96.20 Acute and chronic respiratory failure, unspecified whether with hypoxia or hypercapnia; R65.21 Severe sepsis with septic shock; E43 Unspecified severe protein-calorie malnutrition; I21.A1 Myocardial infarction type 2; N17.0 Acute kidney failure with tubular necrosis; R53.2 Functional quadriplegia; E87.1 Hypo-osmolality and hyponatremia; E27.40 Unspecified adrenocortical insufficiency; N39.0 Urinary tract infection, site not specified; Z99.11 Dependence on respirator [ventilator] status; A04.72 Enterocolitis due to Clostridium difficile, not specified as recurrent; E87.20 Acidosis, unspecified; K56.7 Ileus, unspecified; R18.8 Other ascites; I31.39 Other pericardial effusion (noninflammatory); I82.B11 Acute embolism and thrombosis of right subclavian vein; I82.621 Acute embolism and thrombosis of deep veins of right upper extremity; I82.A11 Acute embolism and thrombosis of right axillary vein; E87.4 Mixed disorder of acid-base balance; J44.0 Chronic obstructive pulmonary disease with (acute) lower respiratory infection; J90 Pleural effusion, not elsewhere classified; K92.2 Gastrointestinal hemorrhage, unspecified; D64.9 Anemia, unspecified; D69.6 Thrombocytopenia, unspecified; E87.5 Hyperkalemia; E87.6 Hypokalemia; E87.70 Fluid overload, unspecified; E88.09 Other disorders of plasma-protein metabolism, not elsewhere classified; F20.9 Schizophrenia, unspecified; F41.9 Anxiety disorder, unspecified; Z74.01 Bed confinement status; Z93.0 Tracheostomy status; Z93.1 Gastrostomy status; Z99.2 Dependence on renal dialysis; Z86.73 Personal history of transient ischemic attack (TIA), and cerebral infarction without residual deficits; Z20.822 Contact with and (suspected) exposure to COVID-19; L89.156 Pressure-induced deep tissue damage of sacral region; L30.4 Erythema intertrigo; K74.60 Unspecified cirrhosis of liver; K31.84 Gastroparesis; R13.10 Dysphagia, unspecified; N20.0 Calculus of kidney; I12.9 Hypertensive chronic kidney disease with stage 1 through stage 4 chronic kidney disease, or unspecified chronic kidney disease; K21.9 Gastro-esophageal reflux disease without esophagitis; E83.41 Hypermagnesemia
CPT/HCPCS: 31720; 36410; 36415; 36569; 36600; 71045-TC; 71250-TC; 74018; 74250-TC; 80048-TC; 80053-TC; 80076-TC; 81001; 82533; 82550-TC; 82803-TC; 83605-TC; 83690-TC; 83735-TC; 83880; 83970; 84100-TC; 84155; 84165; 84484-TC; 85025-TC; 85027-TC; 85610-TC; 85730-TC; 86850-TC; 87040-TC; 87081-TC; 87086-TC; 93307-TC; 93971-TC; 94002-TC; 94003-TC; 94760-TC; 94799-TC; 99082-TC; A4216; A4217; A4223; A4623; A6253; A6403; A7526; C1751; C9113; G0378; J0610; J0692; J1720; J1940; J2060; J2185; J2270; J2405; J2765; J2920; J3370; J3480; J3490; J7030; J7040; J7042; J7050; J7060; J7070; J8597; P9047; Q9963; Q9967